=== PATIENT | male | born 1940 | race Caucasian/White ===

== ENCOUNTER 2018-07-27 14:36 | Inpatient (IN) | payer MEDICARE ==
[~2018-07-27] VITALS: Ht 172.7 cm; Wt 69.9 kg
[~2018-07-27 14:36] MED LIST: ACYC800T PO; AMLO10TA4; ASPI-84; ATEN100T88; HYDR1TAB PO; NF-VAL40T; NR-TACRO1; PRD20T PO; PREVASTAIN; [UNRECOGNIZED DRUG - OTHER]
[2018-07-27] MEDS ORDERED: NS IV 1000 ML 1,000 ML IV SCH (15:15)
[2018-07-27 15:26] LABS: BASOPHILS % (AUTO) 0 % (0-10); EOSINOPHILS # (AUTO) 0.1 10^3/uL (0.0-0.3); EOSINOPHILS % (AUTO) 1 % (0-10); HEMATOCRIT 31 % (40-54); HEMOGLOBIN 10.1 G/DL (13.3-17.7); LYMPHOCYTES # (AUTO) 0.4 X 10^3 (1.0-4.0); LYMPHOCYTES % (AUTO) 4 % (12-44); MEAN CORPUSCULAR HEMOGLOBIN 31 PG (25-34); MEAN CORPUSCULAR HGB CONC 32 G/DL (32-36); MEAN CORPUSCULAR VOLUME 94 FL (80-99); MEAN PLATELET VOLUME 10.3 FL (7.4-10.4); MONOCYTES # (AUTO) 0.6 X 10^3 (0.0-1.0); MONOCYTES % (AUTO) 5 % (0-12); NEUTROPHILS # (AUTO) 9.9 X 10^3 (1.8-7.8); NEUTROPHILS % (AUTO) 90 % (42-75); PLATELET COUNT 464 10^3/uL (130-400); RED CELL DISTRIBUTION WIDTH 15.7 % (10.0-14.5)
--- NOTE | 2018-07-27 15:29 | ED Abdominal Pain ---
General Chief Complaint: Abdominal/GI Problems Stated Complaint: ABD PAIN;DIARRHEA;HEADACHES Nursing Triage Note: PATIENT STATES THAT HE HAS BEEN HAVING AN UPSET STOMACH FOR 6 WEEKS, DIARRHEA, HEADACHES. HE HAS OTHER GENERAL ACHES AND PAINS ALSO. HIS EX- WAS RECENTLY DIAGNOSED WITH C.DIFF. Sepsis Screen: No Definite Risk Source of Information: Patient Exam Limitations: No Limitations History of Present Illness Date Seen by Provider: Jul 27, 2018 Time Seen by Provider: 15:26 Initial Comments This 70-year-old white male presents with a 6 week history of poorly localized abdominal pain, diarrhea, headaches and general malaise. The patient is status post AAA repair and renal transplant. The patient has had no associated vomiting, fever or chills, dysuria or flank pain, stiff neck or photophobia. Patient's has had C. difficile recently. Patient denies any antibiotic usage in the last 6 months. Allergies and Home Medications Allergies Coded Allergies: Iodine (Verified Allergy, Unknown, 01/10/06) Povidone-Iodine (Verified Allergy, Unknown, 01/10/06) Soap (Verified Allergy, Unknown, 01/10/06) Home Medications Acyclovir 800 Mg Tablet, 800 MG PO 5XD Prescribed by: RONNI GUSTAFSON on 02/19/09 1308 Hydrocodone Bit/Acetaminophen 1 Each Tablet, 1-2 EACH PO Q4HR PRN Prescribed by: RONNI GUSTAFSON on 02/19/09 130 Prednisone 20 Mg Tab, 3 TAB PO HS 60 mg PO daily for 4 days then 40 mg PO daily for 4 days then 20 mg PO daily for 4 days Prescribed by: RONNI GUSTAFSON on 02/19/09 1308 Patient Home Medication List Home Medication List Reviewed: Yes Review of Systems Review of Systems Constitutional: No chills, No fever; malaise EENTM: No Blurred Vision, No Ear Pain Respiratory: Denies Cough Cardiovascular: Denies Chest Pain Gastrointestinal: Denies Abdomen Distended; Abdominal Pain (poorly localized and intermittent. Moderate in severity.), Diarrhea Genitourinary: No Symptoms Reported Musculoskeletal: no symptoms reported; No back pain Skin: No rash Psychiatric/Neurological: No Symptoms Reported Endocrine: No Symptoms Reported Hematologic/Lymphatic: No Symptoms Reported Past Witnday-Rcgrpn-Gjwyuk Hx Past Med/Social Hx: Reviewed Nursing Past Med/Soc Hx Patient Social History Alcohol Use: Occasionally Uses Alcohol Beverage of Choice: Beer Recreational Drug Use: No Smoking Status: Former Smoker 2nd Hand Smoke Exposure: No Recent Foreign Travel: No Contact w/Someone Who Travel: No Recent Infectious Disease Expo: No Recent Hopitalizations: No Seasonal Allergies Seasonal Allergies: No Past Medical History Surgeries: Yes (KIDNEY TRANSPLANT, AAA REPAIR, FISTULA PLACEMENT, ) Respiratory: No Aneurysm, Hypertension Neurological: No Genitourinary: No Gastrointestinal: No Musculoskeletal: No Endocrine: Yes Diabetes, Non-Insulin dep HEENT: No Cancer: No Psychosocial: No Integumentary: No Physical Exam Vital Signs Vital Signs - First Documented 07/27/18 14:41 Temp 98.3 Pulse 102 Resp 18 B/P (MAP) 141/67 (91) Pulse Ox 96 Capillary Refill : Less Than 3 Seconds Height/Weight/BMI Height: 5'8.00" Weight: 160lbs. 0oz. 72.907509cy; BMI Method:Stated General Appearance: WD/WN, no apparent distress HEENT: normal ENT inspection Neck: normal inspection Respiratory: chest non-tender, lungs clear, normal breath sounds Cardiovascular: normal peripheral pulses, regular rate, rhythm Gastrointestinal: normal bowel sounds, no organomegaly, no pulsatile mass, tenderness (mild diffuse tenderness to palpation) Extremities: normal range of motion, normal inspection Back: normal inspection Neurologic/Psychiatric: no motor/sensory deficits, alert, normal mood/affect Skin: normal color, warm/dry; No rash Progress/Results/Core Measures Results/Orders Lab Results Laboratory Tests Test 07/27/18 15:05 07/27/18 15:20 Range/Units White Blood Count 11.0 4.3-11.0 10^3/uL Red Blood Count 3.31 L 4.35-5.85 10^6/uL Hemoglobin 10.1 L 13.3-17.7 G/DL Hematocrit 31 L 40-54 % Mean Corpuscular Volume 94 80-99 FL Mean Corpuscular Hemoglobin 31 25-34 PG Mean Corpuscular Hemoglobin Concent 32 32-36 G/DL Red Cell Distribution Width 15.7 H 10.0-14.5 % Platelet Count 464 H 130-400 10^3/uL Mean Platelet Volume 10.3 7.4-10.4 FL Neutrophils (%) (Auto) 90 H 42-75 % Lymphocytes (%) (Auto) 4 L 12-44 % Monocytes (%) (Auto) 5 0-12 % Eosinophils (%) (Auto) 1 0-10 % Basophils (%) (Auto) 0 0-10 % Neutrophils # (Auto) 9.9 H 1.8-7.8 X 10^3 Lymphocytes # (Auto) 0.4 L 1.0-4.0 X 10^3 Monocytes # (Auto) 0.6 0.0-1.0 X 10^3 Eosinophils # (Auto) 0.1 0.0-0.3 10^3/uL Basophils # (Auto) 0.0 0.0-0.1 10^3/uL Neutrophils % (Manual) 91 % Lymphocytes % (Manual) 3 % Monocytes % (Manual) 4 % Eosinophils % (Manual) 2 % Polychromasia SLIGHT Hypochromasia SLIGHT Basophilic Stippling SLIGHT Stomatocytes SLIGHT Sodium Level 130 L 135-145 MMOL/L Potassium Level 4.7 3.6-5.0 MMOL/L Chloride Level 98 98-107 MMOL/L Carbon Dioxide Level 24 21-32 MMOL/L Anion Gap 8 5-14 MMOL/L Blood Urea Nitrogen 19 H 7-18 MG/DL Creatinine 1.08 0.60-1.30 MG/DL Estimat Glomerular Filtration Rate > 60 BUN/Creatinine Ratio 18 Glucose Level 201 H 70-105 MG/DL Calcium Level 9.7 8.5-10.1 MG/DL Corrected Calcium 10.7 H 8.5-10.1 MG/DL Total Bilirubin 0.6 0.1-1.0 MG/DL Aspartate Amino Transf (AST/SGOT) 22 5-34 U/L Alanine Aminotransferase (ALT/SGPT) 23 0-55 U/L Alkaline Phosphatase 191 H 40-136 U/L Total Protein 8.9 H 6.4-8.2 GM/DL Albumin 2.7 L 3.2-4.5 GM/DL Lipase 31 8-78 U/L Urine Color YELLOW Urine Clarity SLIGHTLY CLOUDY Urine pH 6 5-9 Urine Specific [place] 1.015 L 1.016-1.022 Urine Protein 4+ NEGATIVE Urine Glucose (UA) NEGATIVE NEGATIVE Urine Ketones NEGATIVE NEGATIVE Urine Nitrite POSITIVE H NEGATIVE Urine Bilirubin NEGATIVE NEGATIVE Urine Urobilinogen 1 NORMAL MG/DL Urine Leukocyte Esterase 3+ H NEGATIVE Urine RBC (Auto) 4+ H NEGATIVE Urine RBC 2-5 H /HPF Urine WBC 50-100 H /HPF Urine Crystals NONE /LPF Urine Bacteria MODERATE H /HPF Urine Casts NONE /LPF Urine Mucus NEGATIVE /LPF Urine Culture Indicated YES My Orders Orders - NICOLE TRACY MD Cbc With Automated Diff (07/27/18 15:14) Comprehensive Metabolic Panel (07/27/18 15:14) Lipase (07/27/18 15:14) Ua Culture If Indicated (07/27/18 15:14) Stool Culture (07/27/18 15:14) Ct Abdomen/Pelvis Wo (07/27/18 15:14) Ns Iv 1000 Ml (Sodium Chloride 0.9%) (07/27/18 15:15) Manual Differential (07/27/18 15:05) Urine Culture (07/27/18 15:20) Ceftriaxone For Iv Use (Rocephin For I (07/27/18 17:00) Medications Given in ED Current Medications Medications Dose Ordered Sig/Rosanne Route Start Time Stop Time Status Last Admin Dose Admin Ceftriaxone Sodium 1000 mg/ Sterile Water 10 ml @ 200 mls/hr ONCE ONCE IV 07/27/18 17:00 07/27/18 17:02 DC 07/27/18 17:05 200 MLS/HR Vital Signs/I&O 07/27/18 14:41 Temp 98.3 Pulse 102 Resp 18 B/P (MAP) 141/67 (91) Pulse Ox 96 Blood Pressure Mean: 91 Progress Progress Note : Time: 17:32 Progress Note Patient's workup demonstrated a marked urinary tract infection. There were also appear masses in the a.m. lower lobes on chest x-ray. Patient received a gram of Rocephin IV for his urinary tract infection. Telephone consultation was undertaken with Dr. Kerr who was kind enough to admit patient for further evaluation and care. I ordered a CT of the chest for further elucidation of the lower lobe masses in the morning. Departure Communication (Admissions) Time/Spoke to Admitting Phy: 17:33 Dr. Kerr. Impression Primary Impression: Urinary tract infection Qualified Codes: N30.00 - Acute cystitis without hematuria Additional Impression: Mass, chest Disposition: ADMITTED INPATIENT Condition: Improved Admissions Decision to Admit Reason: Admit from ER (General) Decision to Admit/Date: Jul 27, 2018 Time/Decision to Admit Time: 17:34 Departure-Patient Inst. Referrals: NO,LOCAL PHYSICIAN (PCP/Family) Primary Care Physician NICOLE TRACY MD Jul 27, 2018 15:29
[2018-07-27 15:30] LABS: BILIRUBIN,URINE NEGATIVE (NEGATIVE); CLARITY,URINE SLIGHTLY CLOUDY; COLOR,URINE YELLOW; GLUCOSE, URINE (UA) NEGATIVE (NEGATIVE); KETONES,URINE NEGATIVE (NEGATIVE); LEUKOCYTE ESTERASE ,URINE 3+ (NEGATIVE); NITRITE,URINE POSITIVE (NEGATIVE); PH,URINE 6 (5-9); PROTEIN,URINE 4+ (NEGATIVE); UROBILINOGEN,URINE 1 MG/DL (NORMAL)
[2018-07-27 15:38] LABS: ALANINE AMINOTRANSFERASE 23 U/L (0-55); ALBUMIN 2.7 GM/DL (3.2-4.5); ALKALINE PHOSPHATASE 191 U/L (40-136); BILIRUBIN,TOTAL 0.6 MG/DL (0.1-1.0); BUN/CREATININE RATIO 18; CALCIUM 9.7 MG/DL (8.5-10.1); CARBON DIOXIDE 24 MMOL/L (21-32); CHLORIDE 98 MMOL/L (98-107); CREATININE SERUM 1.08 MG/DL (0.60-1.30); GFR ESTIMATED > 60; GLUCOSE 201 MG/DL (70-105); LIPASE 31 U/L (8-78); POTASSIUM 4.7 MMOL/L (3.6-5.0); SODIUM 130 MMOL/L (135-145); TOTAL PROTEIN 8.9 GM/DL (6.4-8.2)
[2018-07-27 15:40] LABS: BACTERIA,URINE MODERATE /HPF; WBC,URINE 50-100 /HPF
[2018-07-27 16:11] LABS: EOSINOPHILS % (MANUAL) 2 %; HYPOCHROMASIA SLIGHT; LYMPHOCYTES % (MANUAL) 3 %; MONOCYTES % (MANUAL) 4 %; NEUTROPHILS % (MANUAL) 91 %; POLYCHROMASIA SLIGHT; STOMATOCYTES SLIGHT
--- NOTE | 2018-07-27 16:23 | Diagnostic Imaging Report ---
PROCEDURE: CT abdomen and pelvis without contrast. TECHNIQUE: Multiple contiguous axial images were obtained through the abdomen and pelvis without the use of intravenous contrast. Auto Exposure Controls were utilized during the CT exam to meet ALARA standards for radiation dose reduction. INDICATION: Abdominal pain and diarrhea. FINDINGS: There are some nodular-appearing bibasilar infiltrates. This is likely atypical infection although neoplasm cannot be excluded. Heart size is upper limits of normal. Liver is normal in size. There is a benign cyst in the left lobe of the liver. There is no biliary ductal dilatation. Gallbladder is unremarkable. Spleen is normal. The pancreas and adrenal glands are unremarkable. There is marked atrophy of both kidneys. There is a 3.8 cm infrarenal abdominal aortic aneurysm which appears to be fusiform. There is moderate atherosclerotic calcification. The bowel gas pattern is nonspecific. There is a right renal fossa transplant kidney. Bladder is normal. There is no pelvic mass or adenopathy. There is no ascites. There are no focal inflammatory changes. There are degenerative changes in the spine. IMPRESSION: Nodular-appearing bibasilar interstitial infiltrates suspect for atypical infection although neoplasm cannot be excluded. Recommend dedicated CT chest as well as short-interval follow-up to ensure resolution. Marked bilateral renal atrophy with right pelvic renal transplant. 3.8 cm abdominal aortic aneurysm. No other acute abnormality in the abdomen or pelvis. Degenerative changes in the spine. Dictated by: Dictated on workstation # [id number]
[2018-07-27] MEDS ORDERED: cefTRIAXone FOR IV USE 1,000 MG in WATER (STERILE) FOR INJECTION 10 ML IV ONE (17:00)
[2018-07-27 18:18] VITALS: BP 163/98
--- NOTE | 2018-07-27 18:18 | NUR ---
STEPHANIA BUSTILLOS JR admitted to room 414-1, with an admitting diagnosis of UTI AND PULMONARY MASSESS, on 07/27/18 from ED via , accompanied by STAFF. STEPHANIA BUSTILLOS JR introduced to surroundings, call light, bed controls, phone, TV, temperature control, lights, meal times, smoking policy, visitor policy, side rail policy, bathrooms and showers. STEPHAINA BUSTILLOS JR verbalizes understanding that [facility] is not responsible for the loss or damage to any personal effects or valuables that are kept in the patients posession during their hospitalization. The following Patient Care Plans were discussed with the PT: Discharge Planning, PAIN, AND UTI. STEPHANIA BUSTILLOS JR verbalizes understanding of Interdisciplinary Patient Education. Patient and/or family were informed about the Rapid Response Team and its purpose.
[2018-07-27 18:25] VITALS: BP 170/98
[2018-07-27] MEDS ORDERED: CATHETER FLUSH 10 ML SYR IV PRN (18:30)
--- NOTE | 2018-07-27 18:45 | NUR ---
CT CHEST W/ CONTRAST ORDERED FOR AM. DR. ROWLAND NOTIFIED OF ALLERGY TO IODINE. AWAITING ORDERS.
--- NOTE | 2018-07-27 18:46 | NUR ---
DR. ROWLAND CALLED AND CT CANCELLED UNTIL RADIOLOGY HERE IN AM FOR HER TO DISCUSS PLAN WITH.
[2018-07-27 20:00] VITALS: BP 123/71
[2018-07-28] VITALS (8 sets, daily range): BP systolic 131–173; BP diastolic 61–96
[2018-07-28 04:34] LABS: BASOPHILS % (AUTO) 0 % (0-10); EOSINOPHILS # (AUTO) 0.1 10^3/uL (0.0-0.3); EOSINOPHILS % (AUTO) 2 % (0-10); HEMATOCRIT 29 % (40-54); HEMOGLOBIN 9.6 G/DL (13.3-17.7); LYMPHOCYTES # (AUTO) 0.4 X 10^3 (1.0-4.0); LYMPHOCYTES % (AUTO) 5 % (12-44); MEAN CORPUSCULAR HEMOGLOBIN 31 PG (25-34); MEAN CORPUSCULAR HGB CONC 33 G/DL (32-36); MEAN CORPUSCULAR VOLUME 95 FL (80-99); MEAN PLATELET VOLUME 10.4 FL (7.4-10.4); MONOCYTES # (AUTO) 0.5 X 10^3 (0.0-1.0); MONOCYTES % (AUTO) 6 % (0-12); NEUTROPHILS # (AUTO) 7.5 X 10^3 (1.8-7.8); NEUTROPHILS % (AUTO) 87 % (42-75); PLATELET COUNT 368 10^3/uL (130-400); RED CELL DISTRIBUTION WIDTH 15.8 % (10.0-14.5); WHITE BLOOD COUNT 8.6 10^3/uL (4.3-11.0)
[2018-07-28 04:54] LABS: ALANINE AMINOTRANSFERASE 30 U/L (0-55); ALBUMIN 2.3 GM/DL (3.2-4.5); ALKALINE PHOSPHATASE 203 U/L (40-136); BILIRUBIN,TOTAL 0.5 MG/DL (0.1-1.0); BUN/CREATININE RATIO 18; CARBON DIOXIDE 17 MMOL/L (21-32); CHLORIDE 102 MMOL/L (98-107); CREATININE SERUM 0.93 MG/DL (0.60-1.30); GFR ESTIMATED > 60; GLUCOSE 217 MG/DL (70-105); POTASSIUM 4.5 MMOL/L (3.6-5.0); SODIUM 132 MMOL/L (135-145); TOTAL PROTEIN 7.6 GM/DL (6.4-8.2)
[2018-07-28] MEDS: NS IV 1000 ML 1,000 ML IV SCH ×2 (08:44→08:45)
--- NOTE | 2018-07-28 08:57 | History & Physical-Hospitalist ---
History of Present Illness HPI/Chief Complaint CC: Abdominal pain HPI: This is a 78-year-old white male of Dr. Chwo who has a past medical history of AAA repair and renal transplant on immunosuppressive antirejection medications and presented to the ER with abdominal pain concerned that he has C. difficile like his ex- who they live together had. There was no evidence of any diarrhea episodes but the abdominal pain was worked up with CT scan that showed nodular densities in the lower bases of the lung chacko but no significant abdominal abnormalities. I did order an ultrasound due to what appears to be ascites on abdominal exam. He was placed on Rocephin for UTI and labs have remained stable. Patient appears to be much improved and is able to function without severe abdominal pain. Source: patient Exam Limitations: no limitations Date Seen 07/28/18 Time Seen by a Provider: 09:15 Attending Physician Laurel Rowland DO PCP No,Local Physician Referring Physician Date of Admission Jul 27, 2018 at 16:45 Home Medications & Allergies Home Medications Reviewed patient Home Medication Reconciliation performed by pharmacy medication reconciliations roadway technician and/or nursing. Patients Allergies have been reviewed. Allergies Allergies Coded Allergies iodine (Verified Allergy, Unknown, 07/27/18) povidone-iodine (Verified Allergy, Unknown, 07/27/18) soap (Verified Allergy, Unknown, 07/27/18) Past Dnrkmsa-Zjjzbh-Bolgqo Hx Past Med/Social Hx: Reviewed Nursing Past Med/Soc Hx, Reviewed and Corrections made Patient Social History Marrital Status: Employed/Student: retired Alcohol Use: Occasionally Uses Alcohol Beverage of Choice: Beer Recreational Drug Use: No Smoking Status: Former Smoker 2nd Hand Smoke Exposure: No Physical Abuse Screen: No Sexual Abuse: No Recent Foreign Travel: No Contact w/other who traveled: No Recent Hopitalizations: No Recent Infectious Disease Expo: No Immunizations Up To Date Date of Pneumonia Vaccine: Jan 16, 2011 Seasonal Allergies Seasonal Allergies: No Past Medical History Cardiac: Aneurysm, Hypertension Genitourinary: Dialysis Endocrine: Diabetes, Non-Insulin dep History of Blood Disorders: No Adverse Reaction to Blood Kyle: No Review of Systems Constitutional: see HPI, weakness EENTM: no symptoms reported Respiratory: no symptoms reported Cardiovascular: no symptoms reported Gastrointestinal: abdominal pain Genitourinary: no symptoms reported Musculoskeletal: no symptoms reported Skin: no symptoms reported Psychiatric/Neurological: No Symptoms Reported All Other Systems Reviewed Negative Unless Noted: Yes Physical Exam Physical Exam Vital Signs Vital Signs - First Documented 07/27/18 07/27/18 14:41 18:11 Temp 98.3 Pulse 102 Resp 18 B/P (MAP) 141/67 (91) Pulse Ox 96 O2 Delivery Room Air Capillary Refill : Less Than 3 Seconds Height, Weight, BMI Height: 5'8.00" Weight: 154lbs. 0.0oz. 69.036726zp; 23.4 BMI Method:Stated General Appearance: No Apparent Distress, WD/WN, Chronically ill Eyes: Right Eye Normal Inspection, Right Eye PERRL HEENT: PERRL/EOMI, Normal ENT Inspection, Pharynx Normal, Moist Mucous Membranes Neck: Full Range of Motion, Normal Inspection, Non Tender Respiratory: Chest Non Tender, Lungs Clear, Normal Breath Sounds, No Accessory Muscle Use, No Respiratory Distress Cardiovascular: Regular Rate, Rhythm, No Edema, No Gallop, No JVD, No Murmur, Normal Peripheral Pulses Gastrointestinal: Normal Bowel Sounds, No Organomegaly, No Pulsatile Mass, Non Tender, Soft, Other (ascites?) Back: Normal Inspection, No CVA Tenderness, No Vertebral Tenderness Extremity: Normal Capillary Refill, Normal Inspection, Normal Range of Motion, Non Tender, No Calf Tenderness, No Pedal Edema Neurologic/Psychiatric: Alert, Oriented x3, No Motor/Sensory Deficits, Normal Mood/Affect Skin: Normal Color, Warm/Dry Lymphatic: No Adenopathy Results Results/Procedures Labs Laboratory Tests 07/27/18 15:05 07/28/18 04:15 Patient resulted labs reviewed. Assessment/Plan Admission Diagnosis Assessment: UTI Renal transplant patient On immunosuppressive antirejection meds Presumed ascites ordering ultrasound Chronic debility AAA status post repair Nodular densities on abdominal CT but allergic to IV contrast can't undergo CT chest at this time Plan: Rocephin Await urine culture Ambulate Check ultrasound Probiotic PT/OT HLIVF Admission Status: Inpatient Order (span 2 midnights) Reason for Inpatient Admission: UTI with antirejection immunsuppressives Diagnosis/Problems Diagnosis/Problems (1) UTI (urinary tract infection) Status: Acute Qualifiers: Urinary tract infection type: acute cystitis Hematuria presence: without hematuria Qualified Codes: N30.00 - Acute cystitis without hematuria (2) Renal transplant, status post Status: Chronic (3) Immunosuppressed status Status: Chronic (4) POSS PULMONARY MASS Status: Acute Clinical Quality Measures DVT/VTE Risk/Contraindication: Risk Factor Score Per Nursin RFS Level Per Nursing on Admit: 3=High LAUREL ROWLAND DO Jul 28, 2018 08:57
[2018-07-28] MEDS ORDERED: TACR1CAP8 PO (09:40)
[2018-07-28] MEDS ORDERED: METF-399 PO (09:40)
[2018-07-28] MEDS ORDERED: AZAT50TA PO (09:40)
[2018-07-28] MEDS ORDERED: GLIM2TAB PO (10:19)
[2018-07-28] MEDS ORDERED: AMLO10TA7 PO (10:19)
[2018-07-28] MEDS ORDERED: OMG1KC PO (10:19)
[2018-07-28] MEDS ORDERED: ASPI-983 PO (10:19)
[2018-07-28] MEDS ORDERED: AMLO5TAB9 PO (10:39)
--- NOTE | 2018-07-28 10:41 | NUR ---
SPOKE WITH THE PATIENT ABOUT HIS MEDICATIONS. HE LISTED TO ME WHAT HE IS TAKING TO THE BEST OF HIS ABILITY. JEANLilaTALIA FLORES FILLED: 07-07-18 TACROLIMUS 1MG BID 07-07-18 AZATHIOPRINE 50MG 2 DAILY (TAKES AT HS) 05-09-18 GLIMEPIRIDE 2MG BID #60 (STATES HE IS OUT AND HAS AN APPOINTMENT WITH DR. BROOKE IN SEPTEMBER TO GET REFILLS, I ENCOURAGED HIM TO SEE IF THEY WOULD AUTHORIZE ENOUGH REFILLS TO GET HIM THROUGH TO HIS APPOINTMENT) ABISAI MAIL ORDER FILLED: 05-31-18 METFORMIN 1000MG BID #180 08-24-17 AMLODIPINE 5MG DAILY #90 (REPORTED 10MG DAILY AND STATES HE HAS NOT FILLED IT IN AWHILE BECAUSE HE HAD A SUPPLY BUILT UP ON HAND AT HOME. ABISAI HAS NEVER FILLED 10MG AND THE 5MG IS SIGNIFICANTLY PAST DUE) HE REPORTS HE TAKES THE FOLLOWING OTC: FISH OIL DAILY ASPIRIN 81MG DAILY
[2018-07-28] MEDS ORDERED: ACETAMINOPHEN 500 MG TAB (TYLENOL) PO PRN (12:30)
[2018-07-28] MEDS ORDERED: DOCUSATE SODIUM 100 MG (COLACE) CAP PO PRN (12:30)
[2018-07-28] MEDS ORDERED: ONDANSETRON 4 MG/2 ML (SDV) Z0FRAN IVP PRN (12:30)
[2018-07-28] MEDS ORDERED: MELATONIN 3 MG TABLET PO PRN (12:30)
[2018-07-28] MEDS ORDERED: diphenhydrAMINE 25 MG TAB (BENADRYL) PO PRN (12:30)
[2018-07-28] MEDS ORDERED: LOPERAMIDE 2 MG (IMODIUM) CAP PO PRN (12:30)
[2018-07-28] MEDS ORDERED: ALPRAZolam 0.25 MG (XANAX) TAB PO PRN (12:30)
--- NOTE | 2018-07-28 14:30 | Physical Therapy Evaluation ---
PT Evaluation-General Medical Diagnosis Admission Date Jul 27, 2018 at 16:45 Medical Diagnosis: weakness Onset Date: Jul 27, 2018 Therapy Diagnosis Therapy Diagnosis: impaired mobility, endurance, balanace Height/Weight Height (Feet): 5 Height (Inches): 8.00 Weight (Pounds): 154 Weight (Ounces): 0.0 Precautions Precautions/Isolations: Standard Precautions Referral Physician: Laurel Kerr DO Reason for Referral: Evaluation/Treatment Medical History Pertinent Medical History: DM, HTN Additional Medical History renal transplant, AAA, aneurysm Current History Patient went to ER with abdominal pain, CT scan showed nodular densities in the lower bases of the lung chacko. Reviewed History: Yes Social History Home: Single Level Current Living Status: Alone Entry Into Home: Stairs With Railing Prior/Core FIM Prior Level of Function Therapy Code Descriptions/Definitions Functional [place] Measure: 0=Not Assessed/NA 4=Minimal Assistance 1=Total Assistance 5=Supervision or Setup 2=Maximal Assistance 6=Modified [place] 3=Moderate Assistance 7=Complete [place] Therapy Quality Codes: 6 Independent with activity with or without an assistive device 5 Patient requires set up or clean up by helper. Patient completes activity by themselves 4 Supervision or touching assist (CGA). Benld provide cues , steadying assist 3 The helper provides less than half the effort to complete the activity 2 The helper provides more than half the effort to complete the activity 1 Dependent. The helper does all the effort to complete an activity 7 Patient refused to complete or attempt activity 9 The patient did not perform the activity before the current illness or injury 88 Not attempted due to Medical conditions or safety concerns Functional Abilities and Goals: Independent: Patient completed the activities by him/herself, with or without an assistive device, with no assistance from a helper. Needed Some Help: Patient needed partial assistance from another person to complete activities. Dependent: A helper completed the activities for the patient. Unknown: Not Applicable: Bed Mobility: 7 Transfers (B,C,W/C) (FIM): 7 Gait: 7 Stairs: 6 Indoor Mobility (Ambulation): Independent Stairs: Independent PT Evaluation-Current Subjective Patient in bed pre tx, agrees to PT, has no complaints of pain. Pt/Family Goals to be independent at home Objective Patient Orientation: Person, Place, Situation Attachments: IV Patient seems to be oriented to person, place, situation, but still seems to be slightly confused. ROM/Strength ROM Lower Extremities WNL Strength Lower Extremities right lower extremity (hip flexion 4-/5, knee extension 4+/5, knee flexion 4+/5 , dorsiflexion 5/5), left lower extremity (hip flexion 4-/5, knee extension 4+/5 , knee flexion 4+/5, dorsiflexion 5/5) Neuromuscular (Tone, Coordination, Reflexes) NT Sensory Vision: Wears Glasses Hearing: Functional Sensation Right Lower Extremit: Intact Sensation Left Lower Extremity: Intact Transfers Therapy Code Descriptions/Definitions Functional [place] Measure: 0=Not Assessed/NA 4=Minimal Assistance 1=Total Assistance 5=Supervision or Setup 2=Maximal Assistance 6=Modified [place] 3=Moderate Assistance 7=Complete [place] Transfers (B, C, W/C) (FIM): 5 Scootin Rollin Supine to/from Sit: 5 Sit to/from Stand: 5 Gait Mode of Locomotion: Walk Anticipated Mode of Locomotion: Walk Gait (FIM): 2 Distance: 50' Gait Level of Assist: 4 Gait Persons Needed: 1 Gait Assistive Device: Handheld Assist (push IV pole) Comments/Gait Description Patient ambulated 50' pushing IV pole with CGA. Patient ambulates briskly but with halting, uncoordinated steps, no LOB though. Balance Sitting Static: Normal Sitting Dynamic: Normal Standing Static: Fair Standing Dynamic: Fair Treatment seated LE exercises x15 (AP, LAQ) Assessment/Needs Patient has impaired mobility, balance, endurance. He has slightly uncoordinated steps during ambulation and seems possible a little confused. Rehab Potential: Fair PT Short Term Goals Short Term Goals Time Frame: Aug 04, 2018 Transfers (B,C,W/C) (FIM): 6 Gait (FIM): 5 Gait Distance Comment: 150' Gait Level of Assist: 5 Gait Assistive Device: Handheld Assist (push IV pole) PT Plan Problem List Problem List: Activity Tolerance, Functional Strength, Safety, Balance, Gait, Transfer Treatment/Plan Treatment Plan: Continue Plan of Care Treatment Plan: Bed Mobility, Education, Functional Activity Carolyne, Functional Strength, Gait, Safety, Therapeutic Exercise, Transfers Treatment Duration: Aug 04, 2018 Frequency: 6 times per week Estimated Hrs Per Day: .25 hour per day (15-30') Patient and/or Family Agrees t: Yes Safety Risks/Education Patient Education: Gait Training, Transfer Techniques, Correct Positioning, Safety Issues Teaching Recipient: Patient Teaching Methods: Demonstration, Discussion Response to Teaching: Reinforcement Needed Discharge Recommendations Plan Patient will perform bed mobility and transfer training, balance and endurance training, functional strengthening, stair training, gait training, and education , to improve functional mobility and independence at home. Therapy D/C Recommendations: Home w/ Family Support Time/GCodes Time In: 1410 Time Out: 1423 Total Billed Treatment Time: 13 Total Billed Treatment 1 visit RAJINDER ARDON PT Jul 28, 2018 14:30
--- NOTE | 2018-07-28 14:40 | NUR ---
Pastoral care visit.
--- NOTE | 2018-07-28 14:51 | Diagnostic Imaging Report ---
PROCEDURE: US abdomen complete. TECHNIQUE: Multiple real-time grayscale images were obtained over the abdomen in various projections. INDICATION: Abdominal pain and distention. COMPARISON: CT abdomen and pelvis from 07/27/2018. FINDINGS: The liver is normal in size and echogenicity. There is no concerning hepatic mass. Well-circumscribed cyst in the left hepatic lobe is stable. The main portal vein is patent with antegrade flow. Gallbladder is contracted with borderline gallbladder wall thickening measuring 0.3 cm. The common bile duct measures up to 0.5 cm in diameter. No intrahepatic biliary dilation. The visualized portions of the pancreas are normal. Portions of the head and tail are obscured by overlying bowel gas. [place] kidneys are atrophic. Right lower quadrant transplant has mild dilation of the renal sinus fat. No shadowing echogenic calculi. The spleen is normal in size and without focal lesion. The aorta and IVC are normal in caliber where seen. The mid and distal aorta is obscured by overlying bowel gas, and therefore the aneurysmal dilatation is not appreciated on this exam. IMPRESSION: 1. Right lower quadrant renal transplant shows minimal dilatation of the renal sinus fat suggestive of mild hydronephrosis. This could be physiologic in nature. 2. Partially contracted gallbladder is likely due to recent eating. No biliary duct dilatation. 3. Simple cyst in the left hepatic lobe. Dictated by: Dictated on workstation # [id number]
--- NOTE | 2018-07-28 15:19 | Occupational Therapy Eval ---
OT Evaluation-General/PLF Medical Diagnosis Admission Date Jul 27, 2018 at 16:45 Medical Diagnosis: weakness Onset Date: Jul 27, 2018 Therapy Diagnosis Therapy Diagnosis: impaired ADLS and mobility Height/Weight Height (Feet): 5 Height (Inches): 8.00 Weight (Pounds): 154 Weight (Ounces): 0.0 Precautions Precautions/Isolations: Standard Precautions Safety Interventions: None Referral Physician: Laurel Kerr DO Referral Reason: Activity Tolerance, Self Care, Evaluation/Treatment, Strengthening/ROM Medical History Pertinent Medical History: DM, HTN Current History HPI: This is a 78-year-old white male of Dr. Chow who has a past medical history of AAA repair and renal transplant on immunosuppressive antirejection medications and presented to the ER with abdominal pain concerned that he has C. difficile like his ex- who they live together had. There was no evidence of any diarrhea episodes but the abdominal pain was worked up with CT scan that showed nodular densities in the lower bases of the lung chacko but no significant abdominal abnormalities. I did order an ultrasound due to what appears to be ascites on abdominal exam. He was placed on Rocephin for UTI and labs have remained stable. Patient appears to be much improved and is able to function without severe abdominal pain. Reviewed History: Yes Social History Home: Single Level Current Living Status: Alone Entry Into Home: Stairs With Railing tub/ shower combo ADL-Prior Level of Function Therapy Code Descriptions/Definitions Functional [place] Measure: 0=Not Assessed/NA 4=Minimal Assistance 1=Total Assistance 5=Supervision or Setup 2=Maximal Assistance 6=Modified [place] 3=Moderate Assistance 7=Complete [place] Therapy Quality Codes: 6 Independent with activity with or without an assistive device 5 Patient requires set up or clean up by helper. Patient completes activity by themselves 4 Supervision or touching assist (CGA). [place] provide cues , steadying assist 3 The helper provides less than half the effort to complete the activity 2 The helper provides more than half the effort to complete the activity 1 Dependent. The helper does all the effort to complete an activity 7 Patient refused to complete or attempt activity 9 The patient did not perform the activity before the current illness or injury 88 Not attempted due to Medical conditions or safety concerns Functional Abilities and Goals: Independent: Patient completed the activities by him/herself, with or without an assistive device, with no assistance from a helper. Needed Some Help: Patient needed partial assistance from another person to complete activities. Dependent: A helper completed the activities for the patient. Unknown: Not Applicable: Self Care: Independent Functional Cognition: Independent Drive Self: Yes OT Current Status Subjective pt agreed to OT evaluation session. pt c/o of no pain. Mental Status/Objective Patient Orientation: Person, Place, Time, Situation Attachments: IV Current Glasses/Contacts: Yes Hearing Aids: No Dentures/Partials: Yes Hand Dominance: Right Upper Extremity ROM WFL Upper Extremity Coordination WFL Upper Extremity Sensation WFL Upper Extremity Strength WFL ADL-Treatment Therapy Code Descriptions/Definitions Functional [place] Measure: 0=Not Assessed/NA 4=Minimal Assistance 1=Total Assistance 5=Supervision or Setup 2=Maximal Assistance 6=Modified [place] 3=Moderate Assistance 7=Complete [place] Therapy Quality Codes: 6 Independent with activity with or without an assistive device 5 Patient requires set up or clean up by helper. Patient completes activity by themselves 4 Supervision or touching assist (CGA). [place] provide cues , steadying assist 3 The helper provides less than half the effort to complete the activity 2 The helper provides more than half the effort to complete the activity 1 Dependent. The helper does all the effort to complete an activity 7 Patient refused to complete or attempt activity 9 The patient did not perform the activity before the current illness or injury 88 Not attempted due to Medical conditions or safety concerns Grooming (FIM): 4 (CGA fro safety/ balance using no AD) Lower Body Dressing (FIM): 5 (sitting EOB) Toileting (FIM): 4 (CGA fro safety/ balance using no AD) Transfers (B, C, W/C) (FIM): 4 (CGA fro safety/ balance using no AD) Education OT Patient Education: Purpose of tx/functional activities Teaching Recipient: Patient Teaching Methods: Discussion Response to Teaching: Verbalize Understanding OT Short Term Goals Short Term Goals Grooming(FIM): 5 Bathing(FIM): 5 Toileting(FIM): 5 Transfers (B,C,W/C) (FIM): 6 Toilet/Commode Transfer(FIM): 5 1=Demonstrate adherence to instructed precautions during ADL tasks. 2=Patient will verbalize/demonstrate understanding of assistive devices/ modifications for ADL. 3=Patient will improve strength/tolerance for activity to enable patient to perform ADL's. OT Making Machine Operator Goals Shelter Goals Grooming(FIM): 6 Bathing(FIM): 6 Lower Body Dressing(FIM): 6 Toileting(FIM): 6 Toilet/Commode Transfer(FIM): 6 1=Demonstrate adherence to instructed precautions during ADL tasks. 2=Patient will verbalize/demonstrate understanding of assistive devices/ modifications for ADL. 3=Patient will improve strength/tolerance for activity to enable patient to perform ADL's. OT Education/Plan Problem List/Assessment Assessment: Decreased Activ Tolerance, Impaired Funct Balance, Impaired I ADL's , Impaired Self-Care Skills 78 year old male pt present to OT service with dx of "weakness" pt laying in bed upon OT arrival in no appearnt distress. pt agreed to OT evaluation session. pt presents with functional limitations affecting areas of ADLS and functional transfers with deficits in: decrease dyn standing balance, decrease activity tolerance. pt would benefit from OT services to increase independence with ADLs/ functional transfers and to address above mention deficits. anticipated d.c home Discharge Recommendations Plan/Recommendations: Continue POC Therapy D/C Recommendations: Home Independently Treatment Plan/Plan of Care Treatment,Training & Education: Yes Patient would benefit from OT for education, treatment and training to promote independence in ADL's, mobility, safety and/or upper extremity function for ADL' s. Plan of Care: ADL Retraining, Caregiver Training, Functional Mobility, UE Funct Exercise/Act Treatment Duration: Aug 04, 2018 Frequency: 5 times per week Estimated Hrs Per Day: .5 hour per day Agreement: Yes Rehab Potential: Fair Time/GCodes Start Time: 15:00 Stop Time: 15:15 Billed Treatment Time EVM 15 minutes GIFTY HOOVER OT Jul 28, 2018 15:19
[2018-07-28] MEDS: LACTOBACILLUS ACIDOPHILUS (PROBIOTIC) CAPSULE PO SCH (17:36)
[2018-07-28] MEDS: GLIMEPIRIDE 2 MG (AMARYL) TAB PO SCH (17:36)
[2018-07-28] MEDS: cefTRIAXone 1,000 MG/SWFI 10 ML IV PUSH IV SCH ×2 (17:37)
[2018-07-28 17:48] LABS: BILIRUBIN,URINE NEGATIVE (NEGATIVE); CLARITY,URINE CLEAR; COLOR,URINE YELLOW; GLUCOSE, URINE (UA) 1+ (NEGATIVE); KETONES,URINE NEGATIVE (NEGATIVE); LEUKOCYTE ESTERASE ,URINE 1+ (NEGATIVE); NITRITE,URINE NEGATIVE (NEGATIVE); PH,URINE 5 (5-9); PROTEIN,URINE 3+ (NEGATIVE); UROBILINOGEN,URINE NORMAL (NORMAL)
[2018-07-28 17:55] LABS: BACTERIA,URINE TRACE /HPF; RBC,URINE 0-2 /HPF; WBC,URINE 25-50 /HPF
[2018-07-29 04:15] VITALS: BP 140/75
[2018-07-29 06:12] LABS: BASOPHILS % (AUTO) 0 % (0-10); EOSINOPHILS # (AUTO) 0.2 10^3/uL (0.0-0.3); EOSINOPHILS % (AUTO) 3 % (0-10); HEMATOCRIT 30 % (40-54); HEMOGLOBIN 9.5 G/DL (13.3-17.7); LYMPHOCYTES # (AUTO) 0.4 X 10^3 (1.0-4.0); LYMPHOCYTES % (AUTO) 6 % (12-44); MEAN CORPUSCULAR HEMOGLOBIN 31 PG (25-34); MEAN CORPUSCULAR HGB CONC 32 G/DL (32-36); MEAN CORPUSCULAR VOLUME 96 FL (80-99); MEAN PLATELET VOLUME 10.3 FL (7.4-10.4); MONOCYTES # (AUTO) 0.5 X 10^3 (0.0-1.0); MONOCYTES % (AUTO) 7 % (0-12); NEUTROPHILS # (AUTO) 5.8 X 10^3 (1.8-7.8); NEUTROPHILS % (AUTO) 84 % (42-75); PLATELET COUNT 344 10^3/uL (130-400); RED CELL DISTRIBUTION WIDTH 15.7 % (10.0-14.5); WHITE BLOOD COUNT 6.9 10^3/uL (4.3-11.0)
[2018-07-29] MEDS: OMEGA 3 (FISH OIL) 1000 MG CAP PO SCH (06:17)
[2018-07-29] MEDS: GLIMEPIRIDE 2 MG (AMARYL) TAB PO SCH ×2 (06:17→16:17)
[2018-07-29] MEDS: LACTOBACILLUS ACIDOPHILUS (PROBIOTIC) CAPSULE PO SCH ×3 (06:17→16:17)
[2018-07-29 06:34] LABS: ALANINE AMINOTRANSFERASE 28 U/L (0-55); ALBUMIN 2.3 GM/DL (3.2-4.5); ALKALINE PHOSPHATASE 195 U/L (40-136); BILIRUBIN,TOTAL 0.3 MG/DL (0.1-1.0); BUN/CREATININE RATIO 12; CALCIUM 8.9 MG/DL (8.5-10.1); CARBON DIOXIDE 21 MMOL/L (21-32); CHLORIDE 104 MMOL/L (98-107); CREATININE SERUM 0.82 MG/DL (0.60-1.30); GFR ESTIMATED > 60; GLUCOSE 185 MG/DL (70-105); POTASSIUM 4.1 MMOL/L (3.6-5.0); SODIUM 133 MMOL/L (135-145); TOTAL PROTEIN 7.7 GM/DL (6.4-8.2)
[2018-07-29 07:20] VITALS: BP 148/79
[2018-07-29] MEDS: ASPIRIN E.C. 81 MG (ECOTRIN) TAB PO SCH (08:44)
--- NOTE | 2018-07-29 10:48 | Physical Therapy Daily Note ---
PT Daily Note-Current Subjective Patient in bed pre tx, agrees to PT, no complaints of pain. Appearance Patient in bed post tx with nurse call, phone, tray, all needs met. Mental Status Patient Orientation: Person, Place, Situation Transfers Therapy Code Descriptions/Definitions Functional [place] Measure: 0=Not Assessed/NA 4=Minimal Assistance 1=Total Assistance 5=Supervision or Setup 2=Maximal Assistance 6=Modified [place] 3=Moderate Assistance 7=Complete [place] Therapy Quality Codes: 6 Independent with activity with or without an assistive device 5 Patient requires set up or clean up by helper. Patient completes activity by themselves 4 Supervision or touching assist (CGA). [place] provide cues , steadying assist 3 The helper provides less than half the effort to complete the activity 2 The helper provides more than half the effort to complete the activity 1 Dependent. The helper does all the effort to complete an activity 7 Patient refused to complete or attempt activity 9 The patient did not perform the activity before the current illness or injury 88 Not attempted due to Medical conditions or safety concerns Transfers (B, C, W/C) (FIM): 5 Scootin Rollin Supine to/from Sit: 6 Sit to/from Stand: 5 Bed to/from Chair: 5 Gait Training Gait (FIM): 5 Distance: 150'x2 Gait Level of Assist: 5 Gait Persons Needed: 1 Gait Assistive Device: None Patient has moments of unsteadiness during ambulation but no LOB. Close SBA. Treatments bed mobility and transfers, ambulation Assessment Current Status: Fair Progress improving endurance, patient not SOB after ambulation PT Short Term Goals Short Term Goals Time Frame: Aug 04, 2018 Transfers (B,C,W/C) (FIM): 6 Gait (FIM): 5 Gait Distance Comment: 150' Gait Level of Assist: 5 Gait Assistive Device: Handheld Assist (push IV pole) PT Plan Problem List Problem List: Activity Tolerance, Functional Strength, Safety, Balance, Gait, Transfer Treatment/Plan Treatment Plan: Continue Plan of Care Treatment Plan: Bed Mobility, Education, Functional Activity [place], Functional Strength, Gait, Safety, Therapeutic Exercise, Transfers Treatment Duration: Aug 04, 2018 Frequency: 6 times per week Estimated Hrs Per Day: .25 hour per day (15-30') Patient and/or Family Agrees t: Yes Safety Risks/Education Patient Education: Gait Training, Transfer Techniques, Correct Positioning, Safety Issues Teaching Recipient: Patient Teaching Methods: Demonstration, Discussion Response to Teaching: Reinforcement Needed Time/GCodes Time In: 1035 Time Out: 1045 Total Billed Treatment Time: 10 Total Billed Treatment 1 visit GT Calli' RAJINDER NAGEL PT Jul 29, 2018 10:48
[2018-07-29 11:35] VITALS: BP 156/76
--- NOTE | 2018-07-29 12:39 | Progress Note-Hospitalist ---
Progress Note Progress Notes/Assess & Plan Date Seen 07/29/18 Time Seen by Provider: 12:35 Assessment & Plan The patient is a 78-year-old white male who presented to the emergency room with complaints of abdominal pain. He appeared to be septic. Urine culture and UA suggested urinary tract infection. He has long-standing history of arteriosclerotic vascular disease. He also has a renal transplant and takes antirejection medications. Dr. Kerr felt that he seemed to be confused yesterday. He is alert and pleasant today. UA is growing staph. This is not MRSA and should respond to the empiric Rocephin. His white count has fallen from 11,000 6900. He is afebrile. His antirejection medications will be restarted. Physical exam: The patient is alert and appears to be oriented. He has vague about his sats symptomatology. Lungs are clear to auscultation. Abdomen is soft. Extremities show no pedal edema. Impression: Urinary tract infection. 2.remote renal transplant. 3.arteriosclerotic vascular disease. Plan: Increase activity. Restart azathioprine and tacrolimus from home supply. MIKE WALDRON MD Jul 29, 2018 12:39
[2018-07-29] MEDS: TACROLIMUS 1 MG PO SCH ×2 (16:18→21:32)
[2018-07-29] MEDS: cefTRIAXone 1,000 MG/SWFI 10 ML IV PUSH IV SCH ×2 (16:18)
[2018-07-29 16:28] VITALS: BP 138/62
[2018-07-29 19:47] VITALS: BP 148/66
[2018-07-29] MEDS: azaTHIOprine (IMURAN) 50 MG TAB PO SCH (21:32)
[2018-07-30] VITALS: BP 145/83
[2018-07-30 04:00] VITALS: BP 157/76
[2018-07-30] MEDS: OMEGA 3 (FISH OIL) 1000 MG CAP PO SCH (06:00)
[2018-07-30] MEDS: LACTOBACILLUS ACIDOPHILUS (PROBIOTIC) CAPSULE PO SCH ×3 (06:00→17:13)
[2018-07-30] MEDS: GLIMEPIRIDE 2 MG (AMARYL) TAB PO SCH ×2 (06:00→17:13)
[2018-07-30 08:00] VITALS: BP 130/59
[2018-07-30] MEDS: ASPIRIN E.C. 81 MG (ECOTRIN) TAB PO SCH (09:11)
[2018-07-30] MEDS: TACROLIMUS 1 MG PO SCH ×2 (09:11→21:06)
[2018-07-30 12:00] VITALS: BP 134/64
[2018-07-30 16:40] VITALS: BP 136/74
[2018-07-30] MEDS: cefTRIAXone 1,000 MG/SWFI 10 ML IV PUSH IV SCH ×2 (17:13)
[2018-07-30 20:20] VITALS: BP 148/74
[2018-07-30] MEDS: azaTHIOprine (IMURAN) 50 MG TAB PO SCH (21:06)
[2018-07-30] MEDS: ONDANSETRON 4 MG (ZOFRAN) ORAL DISSOLVE TAB PO PRN (21:10)
[2018-07-30] MEDS: CALCIUM CARBONATE 500 MG (TUMS) TAB.CHEW PO PRN (21:11)
[2018-07-31] VITALS: BP 143/69
[2018-07-31 03:36] VITALS: BP 145/74
[2018-07-31] MEDS: LACTOBACILLUS ACIDOPHILUS (PROBIOTIC) CAPSULE PO SCH ×2 (05:57→11:30)
[2018-07-31] MEDS: GLIMEPIRIDE 2 MG (AMARYL) TAB PO SCH (05:57)
[2018-07-31] MEDS: OMEGA 3 (FISH OIL) 1000 MG CAP PO SCH (05:57)
[2018-07-31 08:00] VITALS: BP 146/64
[2018-07-31] MEDS: TACROLIMUS 1 MG PO SCH (09:06)
[2018-07-31] MEDS: ASPIRIN E.C. 81 MG (ECOTRIN) TAB PO SCH (09:06)
[2018-07-31] MEDS: CALCIUM CARBONATE 500 MG (TUMS) TAB.CHEW PO PRN (09:11)
[2018-07-31] MEDS: ONDANSETRON 4 MG (ZOFRAN) ORAL DISSOLVE TAB PO PRN (09:11)
--- NOTE | 2018-07-31 10:26 | Progress Note-Hospitalist ---
Progress Note Progress Notes/Assess & Plan Date Seen 07/31/18 Time Seen by Provider: 10:21 Assessment & Plan The patient reports that he is feeling much better. His SaO2 is in the 90s on room air. His white count is now normal. He feels as if he were ready for discharge. We discussed the lesion on his left cheek which needs to be addressed and can be done so as an outpatient. He reports that he works for the [employer] and gets off each day at 1300 hours. His next appointment with Dr. Chow is for September 19 but at 09 30 which will not be doable. I allowed that I would make an arrangement for a surgical assessment of this lesion. Physical exam: Color is good he is up and ambulatory. Lungs are clear to auscultation. CV is regular without murmur. Extremities show no pedal edema. there is a 1 cm in diameter nearly circular hyperkeratotic lesion just lateral to the left nasal labial fold. There is some evidence of breakdown of tissue as well. Impression: Sepsis/urinary tract infection. MS SA. 2.lesion left cheek suspicious for malignancy. Plan: Discharge. See discharge sequence for medications and routines. MIKE WALDRON MD Jul 31, 2018 10:26
[2018-07-31] MEDS ORDERED: CEFD300C3 PO (10:42)
--- NOTE | 2018-07-31 10:53 | Discharge Inst-Simple/Standard ---
Discharge Inst-Standard Discharge Medications New, Converted or Re-Newed RX: Transmitted to Pharmacy Patient Instructions/Follow Up Plan of Care/Instructions/FU: Your prescription has been electronically posted to your pharmacy. Medications are as listed on the discharge sequence. Resume previous activities and diet as tolerated. An appointment has been scheduled with Dr. Javi Muse who is an ear nose and throat doctor. This is for Tuesday, September 02 at 1130 in the [place] office office. Activity as Tolerated: Yes Discharge Diet: No Restrictions Copy Copies To 1: HE BROOKE MD, RODNEY K MD Jul 31, 2018 10:51
--- NOTE | 2018-07-31 11:24 | Occupational Ther Daily Note ---
OT Current Status-Daily Note Subjective pt sitting in recliner chair upon OT arrival in no apparent distress. pt agreed to OT TX session with focus on increase independence with ADLS/ functional transfers. pt stated he should be discharging from the hospital this date. pt expressed excitement of discharging. Appearance post OT TX session call light, phone, and tray within reach. all needs met Mental Status/Objective Therapy Code Descriptions/Definitions Functional [place] Measure: 0=Not Assessed/NA 4=Minimal Assistance 1=Total Assistance 5=Supervision or Setup 2=Maximal Assistance 6=Modified [place] 3=Moderate Assistance 7=Complete [place] ADL-Treatment Eating (FIM): 7 Grooming (FIM): 7 (standing at sink for approx 6 minutes. no safety concerns.) Upper Body (FIM): 7 (pt demo ability to gathering clothing from closet using no AD with good saftey awareness) Lower Body Dressing (FIM): 7 (no safety concerns. pt demo ability to gather clothing and perform LB dressing, (underpants, [place] socks, pants) no LOB noted) Toileting (FIM): 7 (standing at toilet) Transfers (B, C, W/C) (FIM): 6 (no AD. 1 LOB noted but eaily correct by patient ) Toilet/Commode Transfer (FIM): 7 (no AD ) Other Treatment pt education on energy conservation techniques prior to performing ADLS. pt demo good transition on technique within task. Education OT Patient Education: Energy conservation Teaching Recipient: Patient Teaching Methods: Discussion Response to Teaching: Verbalize Understanding, Return Demonstration OT Short Term Goals Short Term Goals Grooming(FIM): 5 Bathing(FIM): 5 Toileting(FIM): 5 Transfers (B,C,W/C) (FIM): 6 Toilet/Commode Transfer(FIM): 5 1=Demonstrate adherence to instructed precautions during ADL tasks. 2=Patient will verbalize/demonstrate understanding of assistive devices/ modifications for ADL. 3=Patient will improve strength/tolerance for activity to enable patient to perform ADL's. OT Usp Goals Usp Goals Grooming(FIM): 6 Bathing(FIM): 6 Lower Body Dressing(FIM): 6 Toileting(FIM): 6 Toilet/Commode Transfer(FIM): 6 1=Demonstrate adherence to instructed precautions during ADL tasks. 2=Patient will verbalize/demonstrate understanding of assistive devices/ modifications for ADL. 3=Patient will improve strength/tolerance for activity to enable patient to perform ADL's. OT Education/Plan Problem List/Assessment pt has made good progress towards all goals. noted 1 LOB during ADLs but pt able to self correct. pt would benefit from continue in house OT Services to address LOB during ADLS. pt is safe to return home when discharged from hospital. Discharge Recommendations Plan/Recommendations: Continue POC Therapy D/C Recommendations: Home Independently Target Placement home Treatment Plan/Plan of Care Patient would benefit from OT for education, treatment and training to promote independence in ADL's, mobility, safety and/or upper extremity function for ADL' s. Plan of Care: ADL Retraining, Caregiver Training, Functional Mobility, UE Funct Exercise/Act Treatment Duration: Aug 04, 2018 Frequency: 5 times per week Estimated Hrs Per Day: .5 hour per day Agreement: Yes Rehab Potential: Fair Time/GCodes Start Time: 10:45 Stop Time: 11:10 Billed Treatment Time ADL 25 minutes, 2 units GIFTY HOOVER OT Jul 31, 2018 11:24
== END 2018-07-31 12:40 | disposition home or self-care (01) | DRG 690 ==
LOC: EDUNIT# 14:36 → ER 14:37 → 4TH 16:45
PROVIDERS: ADMIT Internal Medicine; ATTEND Internal Medicine
DX: N30.00 Acute cystitis without hematuria (principal); R91.8 Other nonspecific abnormal finding of lung field; Z94.0 Kidney transplant status; R10.9 Unspecified abdominal pain; R19.7 Diarrhea, unspecified; R51 Headache; I10 Essential (primary) hypertension; E11.9 Type 2 diabetes mellitus without complications; R53.81 Other malaise; L85.9 Epidermal thickening, unspecified; I70.90 Unspecified atherosclerosis; Z87.891 Personal history of nicotine dependence; Z91.041 Radiographic dye allergy status; Z98.890 Other specified postprocedural states
CPT/HCPCS: 36415; 74176; 76700; 80053; 81000; 83690; 85007; 85025; 85027; 87077; 87088; 87186

== ENCOUNTER → 2018-10-03 | Outpatient (CLI) | payer MEDICARE ==
[~2018-10-03] MED LIST changes: +AMLO10TA7 PO; +AMLO5TAB9 PO; +ASPI-983 PO; +AZAT50TA PO; +CEFD300C3 PO; +GLIM2TAB PO; +METF-399 PO; +OMG1KC PO; +TACR1CAP8 PO
== END ==
LOC: LAB FS 08:08
DX: D89.9 Disorder involving the immune mechanism, unspecified (principal); Z94.0 Kidney transplant status
CPT/HCPCS: 36415; 80197

== ENCOUNTER → 2018-12-14 | Outpatient (CLI) | payer MEDICARE ==
[2018-12-14 08:51] LABS: HEMOGLOBIN 14.6 G/DL (13.3-17.7); MEAN CORPUSCULAR HEMOGLOBIN 29 PG (25-34); WHITE BLOOD COUNT 4.8 10^3/uL (4.3-11.0)
[2018-12-14 08:52] LABS: BASOPHILS % (AUTO) 1 % (0-10); EOSINOPHILS # (AUTO) 0.1 10^3/uL (0.0-0.3); EOSINOPHILS % (AUTO) 3 % (0-10); HEMATOCRIT 47 % (40-54); LYMPHOCYTES # (AUTO) 0.9 X 10^3 (1.0-4.0); LYMPHOCYTES % (AUTO) 18 % (12-44); MEAN CORPUSCULAR HGB CONC 31 G/DL (32-36); MEAN CORPUSCULAR VOLUME 92 FL (80-99); MEAN PLATELET VOLUME 10.3 FL (7.4-10.4); MONOCYTES # (AUTO) 0.6 X 10^3 (0.0-1.0); MONOCYTES % (AUTO) 12 % (0-12); NEUTROPHILS # (AUTO) 3.2 X 10^3 (1.8-7.8); NEUTROPHILS % (AUTO) 66 % (42-75); PLATELET COUNT 181 10^3/uL (130-400); RED CELL DISTRIBUTION WIDTH 16.9 % (10.0-14.5)
[2018-12-14 08:56] LABS: BILIRUBIN,URINE NEGATIVE (NEGATIVE); CLARITY,URINE CLEAR; COLOR,URINE YELLOW; GLUCOSE, URINE (UA) NEGATIVE (NEGATIVE); KETONES,URINE NEGATIVE (NEGATIVE); LEUKOCYTE ESTERASE ,URINE NEGATIVE (NEGATIVE); NITRITE,URINE NEGATIVE (NEGATIVE); PROTEIN,URINE 3+ (NEGATIVE); RBC,URINE 0-2 /HPF; UROBILINOGEN,URINE 0.2 MG/DL (NORMAL); WBC,URINE 0-2 /HPF
[2018-12-14 14:55] LABS: CHOLESTEROL 238 MG/DL (< 200); HDL CHOLESTEROL 64 MG/DL (40-60); PHOSPHORUS 3.6 MG/DL (2.3-4.7); TRIGLYCERIDES 70 MG/DL (<150); VLDL CHOLESTEROL 14 MG/DL (5-40)
[2018-12-14 15:50] LABS: ALANINE AMINOTRANSFERASE 15 U/L (0-55); ALBUMIN 3.5 GM/DL (3.2-4.5); ALKALINE PHOSPHATASE 80 U/L (40-136); BILIRUBIN,DIRECT 0.3 MG/DL (0.0-0.3); BILIRUBIN,INDIRECT 0.4 MG/DL; BILIRUBIN,TOTAL 0.7 MG/DL (0.1-1.0); BUN/CREATININE RATIO 12; CALCIUM 9.7 MG/DL (8.5-10.1); CARBON DIOXIDE 26 MMOL/L (21-32); CHLORIDE 102 MMOL/L (98-107); CREATININE SERUM 1.08 MG/DL (0.60-1.30); GFR ESTIMATED > 60; GLUCOSE 131 MG/DL (70-105); POTASSIUM 4.4 MMOL/L (3.6-5.0); SODIUM 139 MMOL/L (135-145); TOTAL PROTEIN 8.2 GM/DL (6.4-8.2)
[2018-12-14 16:16] LABS: MAGNESIUM 0.8 MG/DL (1.6-2.4)
[2018-12-18 14:01] LABS: BK VIRUS PLASMA PT Not Detected (Not Detected)
[2018-12-20 07:04] LABS: BK VIRUS URINE PT Not Detected (Not Detected)
== END ==
LOC: LAB FS 08:06
PROVIDERS: ATTEND Nurse Practitioner Gerontology
DX: Z94.0 Kidney transplant status (principal)
CPT/HCPCS: 36415; 80061; 80069; 80076; 81000; 82247; 82248; 83735; 84075; 84155; 84450; 84460; 85025; 87799; 87910

== ENCOUNTER 2019-07-16 15:38 | Inpatient (IN) | payer MEDICARE ==
[2019-07-16] VITALS (14 sets, daily range): BP systolic 140–187; BP diastolic 68–104
[~2019-07-16] VITALS: Ht 172.7 cm; Wt 72.3 kg
[~2019-07-16 15:38] MED LIST changes: -GLIM2TAB PO; +GLIM2TAB4 PO
--- NOTE | 2019-07-16 15:50 | NUR ---
Pt presents to registration window at approx 1535 checking into ER as directed from [facility] provider Elenita Lazar NP. The provider called ER as patient entering the ER reporting pt is a renal transplant patient and has SaO2 in office varied 84-88%. Provider concerned for transplant patient to get a betyter work up in ER. States only sx in discomfort in chest pertaining to which side he is laying on. pouch making machine operator directed the patient to be given a mask and sent back outside of ER to accompany this nurse coming to bring him to ED 5 via [place] room entrance for triaging under potenial COVID-19 symptoms.
--- NOTE | 2019-07-16 15:55 | NUR ---
Pt on cart and placed on monitoring. SaO2 90-92% room air. Pt reports 2 weeks of flu like sx while still working at [employer] then staying home aside that. Pt with cough/congestion, "feeling like fevers at night" (no temp taking by pt). Pt has discomfort of pressure from excessive phlegm in chest with pain lung chacko bilateral depending on which side he is laying. Feet are edematous almost "twice the normal". Pt has had a sore throat feeling very scratchy. "Feels like breathing thru a small straw." Dr Cunningham was relayed all info before he entered room in [facility] 19 PPE per protocol.
--- OUTSIDE RECORDS SUMMARY | 2019-07-16 16:13 | XMS REPORT | Continuity of Care Document ---
Author Organization Unknown Address Unknown Phone Unavailable Allergies Active Description Code Type Severity Reaction Onset Reported/Identified Relationship to Patient Clinical Status Yes iodine [id number] Drug Allergy Unknown N/A 07/27/2018 Yes povidone-iodine [id number] D rug Allergy Unknown N/A 07/27/2018 Yes soap [id number] Drug Allergy Unknown N/A 07/27/2018 Medications There is no data. 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 1 PERSONAL HISTORY OF NICOTINE DEPENDENCE 07/28/2018 KASHIF RODRIGUEZ LOVELY Ot Z94.0 KIDNEY TRANSPLANT STATUS 07/28/2018 KASHIF RODRIGUEZ LOVELY Ot Z98.89 0 OTHER SPECIFIED POSTPROCEDURAL STATES 07/28/2018 ROWLAND DO LOVELY Ot E11.9 TYPE 2 DIABETES MELLITUS WITHOUT COMPLIC 07/28/2018 ROWLAND DO, LOVELY Ot I10 ESSENTIAL (PRIMARY) HYPERTENSION 07/28/2018 ROWLAND DO, LOVELY Ot N30.00 ACUTE CYSTITIS WITHOUT HEMATURIA 07/28/2018 ROWLAND DO LOVELY Ot R10.9 UNSPECIFIED ABDOMINAL PAIN 07/28/2018 ROWLAND DO, LOVELY Ot R19.7 DIARRHEA, UNSPECIFIED 07/28/2018 ROWLAND DO, LOVELY Ot R51 HEADACHE 07/28/2018 ROWLAND DO, LOVELY Ot R91.8 OTHER NONSPECIFIC ABNORMAL FINDING OF ANGLE 07/28/2018 KASHIF RODRIGUEZ LOVELY Ot Z87.89 1 PERSONAL HISTORY OF NICOTINE DEPENDENCE 07/28/2018 KASHIF DO LOVELY Ot Z94.0 KIDNEY TRANSPLANT STATUS 07/28/2018 KASHIF DO, LOVELY Ot Z98.89 0 OTHER SPECIFIED POSTPROCEDURAL STATES 07/31/2018 ROWLAND DO, LOVELY Ot E11.9 TYPE 2 DIABETES MELLITUS WITHOUT COMPLIC 07/31/2018 ROWLAND DO, LOVELY Ot I10 ESSENTIAL (PRIMARY) HYPERTENSION 07/31/2018 ROWLAND DO, LOVELY Ot I70.90 UNSPECIFIED ATHEROSCLEROSIS 07/31/2018 ROWLAND DO, LOVELY Ot L85.9 EPIDERMAL THICKENING, UNSPECIFIED 07/31/2018 ROWLAND DO, LOVELY Ot N30.00 ACUTE CYSTITIS WITHOUT HEMATURIA 07/31/2018 ROWLAND DO, LOVELY Ot R10.9 UNSPECIFIED ABDOMINAL PAIN 07/31/2018 ROWLAND DO, LOVELY Ot R19.7 DIARRHEA, UNSPECIFIED 07/31/2018 ROWLAND DO, LOVELY Ot R51 HEADACHE 07/31/2018 ROWLAND DO, LOVELY Ot R53.81 OTHER MALAISE 07/31/2018 ROWLAND DO, LOVELY Ot R91.8 OTHER NONSPECIFIC ABNORMAL FINDING OF ANGLE 07/31/2018 KASHIF RODRIGUEZ LOVELY Ot Z87.89 1 PERSONAL HISTORY OF NICOTINE DEPENDENCE 07/31/2018 KASHIF DO LOVELY Ot Z91.04 1 RADIOGRAPHIC DYE ALLERGY STATUS 07/31/2018 KASHIF RODRIGUEZ, LOVELY Ot Z94.0 KIDNEY TRANSPLANT STATUS 07/31/2018 ROWLAND DO LOVELY Ot Z98.89 0 OTHER SPECIFIED POSTPROCEDURAL STATES 10/05/2018 DEBBIE ROBLES [employer]Y [employer]ATIONS MECHANIC Ot 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, 10/05/2018 DEBBIE ROBLES [employer] MECHANIC Ot Z94.0 KIDNEY TRANSPLANT STATUS 10/18/2018 DEBBIE ROBLES [employer] MECHANIC Ot 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, 10/18/2018 DEBBIE ROBLES [employer] MECHANIC Ot Z94.0 KIDNEY TRANSPLANT STATUS 10/23/2018 DEBBIE ROBLES [employer] MECHANIC Ot 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 Results Test Result Range Complete blood count (CBC) with automate d white blood cell (WBC) differential - 07/27/18 15:05 Blood leukocytes automated count (number/volume) 11.0 10*3/uL 4.3-11.0 Blood erythrocytes automated count (number/volume) 3.31 10*6/uL 4.35-5.85 Venous blood hemoglobin measurement (mass/volume) 10.1 g/dL 13.3-17.7 Blood hematocrit (volume fraction) 31 % 40-54 Automated erythrocyte mean corpuscular volume 94 [ foz_us] 80-99 Automated erythrocyte mean corpuscular h emoglobin (mass per erythrocyte) 31 pg 25-34 Automated erythrocyte mean corpuscular h emoglobin concentration measurement (mass/volume) 32 g/dL 32-36 Automated erythrocyte distribution width ratio 15. 7 % 10.0- 14.5 Automated blood platelet count (count/volume) 464 10*3/uL 130-400 Automated blood platelet mean volume measurement 10.3 [foz_us] 7.4-10.4 Automated blood neutrophils/100 leukocytes 90 % 42-75 Automated blood lymphocytes/100 leukocytes 4 % 12-44 Blood monocytes/100 leukocytes 5 % 0-12 Automated blood eosinophils/100 leukocytes 1 % 0-10 Automated blood basophils/100 leukocytes 0 % 0-10 Blood neutrophils automated count (number/volume) 9.9 10*3 1.8-7.8 Blood lymphocytes automated count (number/volume) 0.4 10*3 1.0-4.0 Blood monocytes automated count (number/volume) 0. 6 10*3 0.0-1.0 Automated eosinophil count 0.1 10*3/uL 0 .0-0.3 Automated blood basophil count (count/volume) 0.0 10*3/uL 0.0-0.1 Comprehensive metabolic panel - 07/27/18 15:05 Serum or plasma sodium measurement (moles/volume) 130 mmol/L 135-145 Serum or plasma potassium measurement (moles/volume) 4.7 mmol/L 3.6-5.0 Serum or plasma chloride measurement (moles/volume) 98 mmol/L 98-107 Carbon dioxide 24 mmol/L 21-32 Serum or plasma anion gap determination (moles/volume) 8 mmol/L 5-14 Serum or plasma urea nitrogen measurement (mass/volume ) 19 mg/dL 7-18 Serum or plasma creatinine measurement (mass/volume) 1.08 mg/dL 0.60-1.30 Serum or plasma urea nitrogen/creatinine mass ratio 18 NRG Serum or plasma creatinine measurement w ith calculation of estimated glomerular filtration rate > NRG Serum or plasma glucose measurement (mass/volume) 201 mg/dL 70-105 Serum or plasma calcium measurement (mass/volume) 9.7 mg/dL 8.5-10.1 Serum or plasma total bilirubin measurement (mass/volu me) 0.6 mg/dL 0.1-1.0 Serum or plasma alkaline phosphatase alethea surement (enzymatic activity/volume) 191 U/L 40-136 Serum or plasma aspartate aminotransfera se measurement (enzymatic activity/volume) 22 U/L 5-34 Serum or plasma alanine aminotransferase measurement (enzymatic activity/volume) 23 U/L 0-55 Serum or plasma protein measurement (mass/volume) 8.9 g/dL 6.4-8.2 Serum or plasma albumin measurement (mass/volume) 2.7 g/dL 3.2-4.5 CALCIUM CORRECTED 10.7 mg/dL 8.5-10.1 Lipase - 07/27/18 15:05 Lipase 31 U/L 8-78 Blood manual differential performed dete ction - 07/27/18 15:05 Blood monocytes/100 leukocytes 4 % NRG Manual blood segmented neutrophils/100 leukocytes 91 % NRG Manual blood lymphocytes/100 leukocytes 3 % NRG Manual eosinophils/100 leukocytes in nose 2 % NRG Blood polychromasia detection by light microscopy SLIGHT NRG Blood hypochromia detection by light microscopy SL IGHT NRG Blood stomatocytes detection by light microscopy S LIGHT NRG Blood basophilic stippling detection by light microsco py SLIGHT NRG Complete urinalysis with reflex to cultu re - 07/27/18 15:20 Urine color determination YELLOW NRG Urine clarity determination SLIGHTLY CLOUDY NRG Urine pH measurement by test strip 6 5-9 Specific gravity of urine by test strip 1.015 1.016-1.022 Urine protein assay by test strip, semi-quantitative 4+ NEGATIVE Urine glucose detection by automated test strip NE GATIVE NEGATIVE Erythrocytes detection in urine sediment by light micr oscopy 4+ NEGATIVE Urine ketones detection by automated test strip NE GATIVE NEGATIVE Urine nitrite detection by test strip POSITIVE NEGATIVE Urine total bilirubin detection by test strip NEGA TIVE NEGATIVE Urine urobilinogen measurement by automated test strip (mass/volume) 1 mg/dL NORMAL Urine leukocyte esterase detection by dipstick 3+ NEGATIVE Automated urine sediment erythrocyte cou nt by microscopy (number/high power field) [HPF] NRG Automated urine sediment leukocyte count by microscopy (number/high power field) [HPF] NRG Bacteria detection in urine sediment by light microsco py MODERATE NRG Crystals detection in urine sediment by light microsco py NONE NRG Casts detection in urine sediment by light microscopy NONE NRG Mucus detection in urine sediment by light microscopy NEGATIVE NRG Complete urinalysis with reflex to culture YES NRG Bacterial urine culture - 07/27/18 15:20 Bacterial urine culture [id number] NRG COLONY COUNT >100,000/ML NRG FTX;REPORTABLE SUSCEPTIBILITY REPORT RCD 07/29 09:0 5 NRG RML Sensitivity Panel - 07/27/18 15:20 Oxacillin susceptibility test by minimum inhibitory co ncentration 0.5 NRG Trimethoprim/sulfamethoxazole susceptibi lity test by minimum inhibitoryconcentration S NRG Vancomycin susceptibility test by minimum inhibitory c oncentration 1 NRG Levofloxacin susceptibility test by minimum inhibitory concentration <= NRG Rifampin susceptibility test by minimum inhibitory con centration <= NRG Cefazolin susceptibility test by minimum inhibitory co ncentration <= NRG Nitrofurantoin susceptibility test by mi nimum inhibitory concentration <= NRG Penicillin G susceptibility test by minimum inhibitory concentration > NRG Complete blood count (CBC) with automate d white blood cell (WBC) differential - 07/28/18 04:15 Blood leukocytes automated count (number/volume) 8.6 10*3/uL 4.3-11.0 Blood erythrocytes automated count (number/volume) 3.10 10*6/uL 4.35-5.85 Venous blood hemoglobin measurement (mass/volume) 9.6 g/dL 13.3-17.7 Blood hematocrit (volume fraction) 29 % 40-54 Automated erythrocyte mean corpuscular volume 95 [ foz_us] 80-99 Automated erythrocyte mean corpuscular h emoglobin (mass per erythrocyte) 31 pg 25-34 Automated erythrocyte mean corpuscular h emoglobin concentration measurement (mass/volume) 33 g/dL 32-36 Automated erythrocyte distribution width ratio 15. 8 % 10.0- 14.5 Automated blood platelet count (count/volume) 368 10*3/uL 130-400 Automated blood platelet mean volume measurement 10.4 [foz_us] 7.4-10.4 Automated blood neutrophils/100 leukocytes 87 % 42-75 Automated blood lymphocytes/100 leukocytes 5 % 12-44 Blood monocytes/100 leukocytes 6 % 0-12 Automated blood eosinophils/100 leukocytes 2 % 0-10 Automated blood basophils/100 leukocytes 0 % 0-10 Blood neutrophils automated count (number/volume) 7.5 10*3 1.8-7.8 Blood lymphocytes automated count (number/volume) 0.4 10*3 1.0-4.0 Blood monocytes automated count (number/volume) 0. 5 10*3 0.0-1.0 Automated eosinophil count 0.1 10*3/uL 0 .0-0.3 Automated blood basophil count (count/volume) 0.0 10*3/uL 0.0-0.1 Comprehensive metabolic panel - 07/28/18 04:15 Serum or plasma sodium measurement (moles/volume) 132 mmol/L 135-145 Serum or plasma potassium measurement (moles/volume) 4.5 mmol/L 3.6-5.0 Serum or plasma chloride measurement (moles/volume) 102 mmol/L 98-107 Carbon dioxide 17 mmol/L 21-32 Serum or plasma anion gap determination (moles/volume) 13 mmol/L 5-14 Serum or plasma urea nitrogen measurement (mass/volume ) 17 mg/dL 7-18 Serum or plasma creatinine measurement (mass/volume) 0.93 mg/dL 0.60-1.30 Serum or plasma urea nitrogen/creatinine mass ratio 18 NRG Serum or plasma creatinine measurement w ith calculation of estimated glomerular filtration rate > NRG Serum or plasma glucose measurement (mass/volume) 217 mg/dL 70-105 Serum or plasma calcium measurement (mass/volume) 9.0 mg/dL 8.5-10.1 Serum or plasma total bilirubin measurement (mass/volu me) 0.5 mg/dL 0.1-1.0 Serum or plasma alkaline phosphatase alethea surement (enzymatic activity/volume) 203 U/L 40-136 Serum or plasma aspartate aminotransfera se measurement (enzymatic activity/volume) 36 U/L 5-34 Serum or plasma alanine aminotransferase measurement (enzymatic activity/volume) 30 U/L 0-55 Serum or plasma protein measurement (mass/volume) 7.6 g/dL 6.4-8.2 Serum or plasma albumin measurement (mass/volume) 2.3 g/dL 3.2-4.5 CALCIUM CORRECTED 10.4 mg/dL 8.5-10.1 Complete urinalysis with reflex to cultu re - 07/28/18 13:05 Urine color determination YELLOW NRG Urine clarity determination CLEAR NR G Urine pH measurement by test strip 5 5-9 Specific gravity of urine by test strip 1.015 1.016-1.022 Urine protein assay by test strip, semi-quantitative 3+ NEGATIVE Urine glucose detection by automated test strip 1+ NEGATIVE Erythrocytes detection in urine sediment by light micr oscopy 2+ NEGATIVE Urine ketones detection by automated test strip NE GATIVE NEGATIVE Urine nitrite detection by test strip NEGATIVE NEGATIVE Urine total bilirubin detection by test strip NEGA TIVE NEGATIVE Urine urobilinogen measurement by automated test strip (mass/volume) NORMAL NORMAL Urine leukocyte esterase detection by dipstick 1+ NEGATIVE Automated urine sediment erythrocyte cou nt by microscopy (number/high power field) [HPF] NRG Automated urine sediment leukocyte count by microscopy (number/high power field) [HPF] NRG Bacteria detection in urine sediment by light microsco py TRACE NRG Crystals detection in urine sediment by light microsco py NONE NRG Casts detection in urine sediment by light microscopy PRESENT NRG Mucus detection in urine sediment by light microscopy NEGATIVE NRG Complete urinalysis with reflex to culture YES NRG Hyaline casts detection in urine sediment by light corona roscopy 2-5 NRG Bacterial urine culture - 07/28/18 13:05 Bacterial urine culture NG NRG Complete blood count (CBC) with automate d white blood cell (WBC) differential - 07/29/18 05:49 Blood leukocytes automated count (number/volume) 6.9 10*3/uL 4.3-11.0 Blood erythrocytes automated count (number/volume) 3.11 10*6/uL 4.35-5.85 Venous blood hemoglobin measurement (mass/volume) 9.5 g/dL 13.3-17.7 Blood hematocrit (volume fraction) 30 % 40-54 Automated erythrocyte mean corpuscular volume 96 [ foz_us] 80-99 Automated erythrocyte mean corpuscular h emoglobin (mass per erythrocyte) 31 pg 25-34 Automated erythrocyte mean corpuscular h emoglobin concentration measurement (mass/volume) 32 g/dL 32-36 Automated erythrocyte distribution width ratio 15. 7 % 10.0- 14.5 Automated blood platelet count (count/volume) 344 10*3/uL 130-400 Automated blood platelet mean volume measurement 10.3 [foz_us] 7.4-10.4 Automated blood neutrophils/100 leukocytes 84 % 42-75 Automated blood lymphocytes/100 leukocytes 6 % 12-44 Blood monocytes/100 leukocytes 7 % 0-12 Automated blood eosinophils/100 leukocytes 3 % 0-10 Automated blood basophils/100 leukocytes 0 % 0-10 Blood neutrophils automated count (number/volume) 5.8 10*3 1.8-7.8 Blood lymphocytes automated count (number/volume) 0.4 10*3 1.0-4.0 Blood monocytes automated count (number/volume) 0. 5 10*3 0.0-1.0 Automated eosinophil count 0.2 10*3/uL 0 .0-0.3 Automated blood basophil count (count/volume) 0.0 10*3/uL 0.0-0.1 Comprehensive metabolic panel - 07/29/18 05:49 Serum or plasma sodium measurement (moles/volume) 133 mmol/L 135-145 Serum or plasma potassium measurement (moles/volume) 4.1 mmol/L 3.6-5.0 Serum or plasma chloride measurement (moles/volume) 104 mmol/L 98-107 Carbon dioxide 21 mmol/L 21-32 Serum or plasma anion gap determination (moles/volume) 8 mmol/L 5-14 Serum or plasma urea nitrogen measurement (mass/volume ) 10 mg/dL 7-18 Serum or plasma creatinine measurement (mass/volume) 0.82 mg/dL 0.60-1.30 Serum or plasma urea nitrogen/creatinine mass ratio 12 NRG Serum or plasma creatinine measurement w ith calculation of estimated glomerular filtration rate > NRG Serum or plasma glucose measurement (mass/volume) 185 mg/dL 70-105 Serum or plasma calcium measurement (mass/volume) 8.9 mg/dL 8.5-10.1 Serum or plasma total bilirubin measurement (mass/volu me) 0.3 mg/dL 0.1-1.0 Serum or plasma alkaline phosphatase alethea surement (enzymatic activity/volume) 195 U/L 40-136 Serum or plasma aspartate aminotransfera se measurement (enzymatic activity/volume) 33 U/L 5-34 Serum or plasma alanine aminotransferase measurement (enzymatic activity/volume) 28 U/L 0-55 Serum or plasma protein measurement (mass/volume) 7.7 g/dL 6.4-8.2 Serum or plasma albumin measurement (mass/volume) 2.3 g/dL 3.2-4.5 CALCIUM CORRECTED 10.3 mg/dL 8.5-10.1 FK 506 - 10/03/18 08:17 Tacrolimus blood 8.5 % NRG Complete urinalysis with reflex to cultu re - 12/14/18 08:25 Urine color determination YELLOW NRG Urine clarity determination CLEAR NR G Urine pH measurement by test strip 6.0 5-9 Specific gravity of urine by test strip 1.020 1.016-1.022 Urine protein assay by test strip, semi-quantitative 3+ NEGATIVE Urine glucose detection by automated test strip NE GATIVE NEGATIVE Erythrocytes detection in urine sediment by light micr oscopy TRACE NEGATIVE Urine ketones detection by automated test strip NE GATIVE NEGATIVE Urine nitrite detection by test strip NEGATIVE NEGATIVE Urine total bilirubin detection by test strip NEGA TIVE NEGATIVE Urine urobilinogen measurement by automated test strip (mass/volume) 0.2 mg/dL NORMAL Urine leukocyte esterase detection by dipstick NEG ATIVE NEGATIVE Automated urine sediment erythrocyte cou nt by microscopy (number/high power field) [HPF] NRG Automated urine sediment leukocyte count by microscopy (number/high power field) [HPF] NRG Bacteria detection in urine sediment by light microsco py NONE NRG Squamous epithelial cells detection in u rine sediment by light microscopy 5-10 NRG Crystals detection in urine sediment by light microsco py NONE NRG Casts detection in urine sediment by light microscopy NONE NRG Mucus detection in urine sediment by light microscopy NEGATIVE NRG Complete urinalysis with reflex to culture NO NRG Complete blood count (CBC) with automate d white blood cell (WBC) differential - 12/14/18 08:33 Blood leukocytes automated count (number/volume) 4.8 10*3/uL 4.3-11.0 Blood erythrocytes automated count (number/volume) 5.10 10*6/uL 4.35-5.85 Venous blood hemoglobin measurement (mass/volume) 14.6 g/dL 13.3-17.7 Blood hematocrit (volume fraction) 47 % 40-54 Automated erythrocyte mean corpuscular volume 92 [ foz_us] 80-99 Automated erythrocyte mean corpuscular h emoglobin (mass per erythrocyte) 29 pg 25-34 Automated erythrocyte mean corpuscular h emoglobin concentration measurement (mass/volume) 31 g/dL 32-36 Automated erythrocyte distribution width ratio 16. 9 % 10.0- 14.5 Automated blood platelet count (count/volume) 181 10*3/uL 130-400 Automated blood platelet mean volume measurement 10.3 [foz_us] 7.4-10.4 Automated blood neutrophils/100 leukocytes 66 % 42-75 Automated blood lymphocytes/100 leukocytes 18 % 12-44 Blood monocytes/100 leukocytes 12 % 0-12 Automated blood eosinophils/100 leukocytes 3 % 0-10 Automated blood basophils/100 leukocytes 1 % 0-10 Blood neutrophils automated count (number/volume) 3.2 10*3 1.8-7.8 Blood lymphocytes automated count (number/volume) 0.9 10*3 1.0-4.0 Blood monocytes automated count (number/volume) 0. 6 10*3 0.0-1.0 Automated eosinophil count 0.1 10*3/uL 0 .0-0.3 Automated blood basophil count (count/volume) 0.0 10*3/uL 0.0-0.1 Liver function panel (serum or plasma al k phos, alb, total and direct bili, total protein, ALT, AST) - 12/14/18 08:33 Serum or plasma total bilirubin measurement (mass/volu me) 0.7 mg/dL 0.1-1.0 Serum or plasma alkaline phosphatase alethea surement (enzymatic activity/volume) 80 U/L 40-136 Serum or plasma aspartate aminotransfera se measurement (enzymatic activity/volume) 29 U/L 5-34 Serum or plasma alanine aminotransferase measurement (enzymatic activity/volume) 15 U/L 0-55 Serum or plasma protein measurement (mass/volume) 8.2 g/dL 6.4-8.2 Serum or plasma albumin measurement (mass/volume) 3.5 g/dL 3.2-4.5 Bilirubin direct 0.3 mg/dL 0.0-0.3 Serum or plasma indirect bilirubin measurement (mass/v olume) 0.4 mg/dL NRG Serum or plasma renal function panel (Na , K, Cl, CO2, BUN, Cr, glucose,Ca, phos, alb) - 12/14/18 08:33 Serum or plasma sodium measurement (moles/volume) 139 mmol/L 135-145 Serum or plasma potassium measurement (moles/volume) 4.4 mmol/L 3.6-5.0 Serum or plasma chloride measurement (moles/volume) 102 mmol/L 98-107 Carbon dioxide 26 mmol/L 21-32 Serum or plasma anion gap determination (moles/volume) 11 mmol/L 5-14 Serum or plasma urea nitrogen measurement (mass/volume ) 13 mg/dL 7-18 Serum or plasma creatinine measurement (mass/volume) 1.08 mg/dL 0.60-1.30 Serum or plasma urea nitrogen/creatinine mass ratio 12 NRG Serum or plasma creatinine measurement w ith calculation of estimated glomerular filtration rate > NRG Serum or plasma glucose measurement (mass/volume) 131 mg/dL 70-105 Serum or plasma calcium measurement (mass/volume) 9.7 mg/dL 8.5-10.1 Serum or plasma phosphate measurement (mass/volume) 3.6 mg/dL 2.3-4.7 Magnesium - 12/14/18 08:33 Magnesium 0.8 mg/dL 1.6-2.4 Lipid 1996 panel - 12/14/18 08:33 Serum or plasma triglyceride measurement (mass/volume) 70 mg/dL <150 Serum or plasma cholesterol measurement (mass/volume) 238 mg/dL < 200 Serum or plasma cholesterol in HDL measurement (mass/v olume) 64 mg/dL 40-60 Cholesterol in LDL [mass/volume] in serum or plasma by direct assay 177 mg/dL 1-129 Serum or plasma cholesterol in VLDL measurement (mass/ volume) 14 mg/dL 5-40 [id number] - 12/14/18 08:33 Cytomegalovirus DNA detection by probe a nd target amplification method Not Detected Not Detected Identification of specimen source Blood NRG BK VIRUS - 12/14/18 08:33 Serum or plasma BK virus DNA viral load by probe and target amplification method (units/volume) Not Detected Not Detected BK VIRUS URINE - 12/14/18 08:33 Urine BK virus DNA viral load by probe a nd target amplification method (units/volume) Not Detected Not Detected Encounters ACCT No. Visit Date/Time Discharge Status Pt. Type Provider Facility Loc./Unit Complaint [id number] 12/14/2018 08:06:00 23:59:59 [facility] Outpatient BRANCH, DEBBIE Roman APRN [facility] LAB FS Z94.0 [id number] 10/03/2018 08:08:00 23:59:59 [facility] Outpatient BRANCHDEBBIE APRN [facility] LAB FS Z94.0 D89.9 [id number] 07/27/2018 16:45:00 12:40:00 DIS Inpatient LOVELY ROWLAND DO [facility] 4TH UTI, POSSIBLE PULMONARY MASSES
--- NOTE | 2019-07-16 16:30 | ED Respiratory ---
General Chief Complaint: Respiratory Problems Stated Complaint: OXYGEN LEVEL LOW,FLU SYMPTOMS Source: patient Exam Limitations: no limitations History of Present Illness Date Seen by Provider: Jul 16, 2019 Time Seen by Provider: 17:00 Initial Comments Presents w cough for 2 wks, daily subjective fever and chills relieved by taking Motrin. Hx of renal transplant, Diabetes. Timing/Duration: week (2) Associated Symptoms: chest pain/soreness, cough, fever/chills, shortness of breath Allergies and Home Medications Allergies Coded Allergies: iodine (Verified Allergy, Unknown, 07/27/18) povidone-iodine (Verified Allergy, Unknown, 07/27/18) soap (Verified Allergy, Unknown, 07/27/18) Home Medications Amlodipine Besylate 5 Mg Tablet, 5 MG PO DAILY, (Reported) LAST FILLED #90 08-24-17 Aspirin 81 Mg Tablet.dr, 81 MG PO DAILY, (Reported) Azathioprine 50 Mg Tablet, 100 MG PO HS, (Reported) TAKES 2 (50MG) TABLETS Fish Oil/Dha/Epa 1 Each Capsule, 1 EACH PO HS, (Reported) Glimepiride 2 Mg Tablet, 2 MG PO BID, (Reported) LAST FILLED #60 05-09-18 Magnesium Oxide 400 Mg Capsule, 400 MG PO HS, (Reported) Metformin HCl 1,000 Mg Tablet, 1,000 MG PO BID, (Reported) Tacrolimus 1 Mg Capsule, 1 MG PO BID, (Reported) Patient Home Medication List Home Medication List Reviewed: Yes Review of Systems Review of Systems Constitutional: see HPI, fever, malaise Respiratory: cough, dyspnea on exertion; No hemoptysis; phlegm, short of breath Cardiovascular: No chest pain; edema (chronic LE, worse now); No palpitations Gastrointestinal: No abdominal pain, No loss of appetite, No nausea, No vomiting Musculoskeletal: No back pain, No joint pain Skin: No change in color, No pruritus, No rash Past Qvoltji-Lbcslk-Hjnokl Hx Past Med/Social Hx: Reviewed Nursing Past Med/Soc Hx Patient Social History Alcohol Beverage of Choice: Beer 2nd Hand Smoke Exposure: No Recent Foreign Travel: No Contact w/Someone Who Travel: No Recent Hopitalizations: No Immunizations Up To Date Date of Pneumonia Vaccine: Jan 16, 2011 Seasonal Allergies Seasonal Allergies: No Past Medical History Surgeries: Yes (KIDNEY TRANSPLANT, AAA REPAIR, FISTULA PLACEMENT, ) Respiratory: No Aneurysm, Hypertension Neurological: No Genitourinary: Yes (KIDNEY TRANSPLANT 2004) Dialysis Gastrointestinal: No Musculoskeletal: No Endocrine: Yes Diabetes, Non-Insulin dep HEENT: No Cancer: No Psychosocial: No Integumentary: No Blood Disorders: No Adverse Reaction/Blood Tranf: No Physical Exam Vital Signs - First Documented 07/16/19 15:50 Temp 36.9 Pulse 84 Resp 20 B/P (MAP) 180/85 (116) Pulse Ox 91 O2 Delivery Room Air Capillary Refill : Height: 5'8.00" Weight: 154lbs. 0.0oz. 69.305347bp; 23.4 BMI Method:Stated General Appearance: WD/WN, no apparent distress HEENT: normal ENT inspection Neck: non-tender, supple, normal inspection Respiratory: chest non-tender, lungs clear, no respiratory distress, no accessory muscle use; No respiratory distress, No accessory muscle use Cardiovascular: regular rate, rhythm, other (b/l LE dependent edema - pitting) Gastrointestinal: non tender, soft; No guarding, No rebound Extremities: normal range of motion, non-tender, no calf tenderness, normal capillary refill Neurologic/Psychiatric: no motor/sensory deficits, alert, normal mood/affect, oriented x 3 Skin: normal color, warm/dry; No jaundice, No mottled, No rash Focused Exam Lactate Level 07/16/19 16:40: Lactic Acid Level 1.40 Lactic Acid Level Laboratory Tests Test 07/16/19 16:40 Lactic Acid Level 1.40 MMOL/L (0.50-2.00) Progress/Results/Core Measures Suspected Sepsis SIRS Temperature: Pulse: Respiratory Rate: Laboratory Tests 07/16/19 16:15: White Blood Count 5.1 Blood Pressure / Mean: 07/16/19 16:40: Lactic Acid Level 1.40 Laboratory Tests 07/16/19 16:15: Creatinine 1.55H, Platelet Count 230, Total Bilirubin 0.3 Results/Orders Lab Results Laboratory Tests Test 07/16/19 16:15 07/16/19 16:40 Range/Units White Blood Count 5.1 4.3-11.0 10^3/uL Red Blood Count 3.99 L 4.35-5.85 10^6/uL Hemoglobin 12.3 L 13.3-17.7 G/DL Hematocrit 38 L 40-54 % Mean Corpuscular Volume 96 80-99 FL Mean Corpuscular Hemoglobin 31 25-34 PG Mean Corpuscular Hemoglobin Concent 32 32-36 G/DL Red Cell Distribution Width 16.2 H 10.0-14.5 % Platelet Count 230 130-400 10^3/uL Mean Platelet Volume 9.8 7.4-10.4 FL Neutrophils (%) (Auto) 70 42-75 % Lymphocytes (%) (Auto) 13 12-44 % Monocytes (%) (Auto) 11 0-12 % Eosinophils (%) (Auto) 6 0-10 % Basophils (%) (Auto) 1 0-10 % Neutrophils # (Auto) 3.5 1.8-7.8 X 10^3 Lymphocytes # (Auto) 0.6 L 1.0-4.0 X 10^3 Monocytes # (Auto) 0.5 0.0-1.0 X 10^3 Eosinophils # (Auto) 0.3 0.0-0.3 10^3/uL Basophils # (Auto) 0.1 0.0-0.1 10^3/uL Sodium Level 138 135-145 MMOL/L Potassium Level 4.6 3.6-5.0 MMOL/L Chloride Level 102 98-107 MMOL/L Carbon Dioxide Level 26 21-32 MMOL/L Anion Gap 10 5-14 MMOL/L Blood Urea Nitrogen 19 H 7-18 MG/DL Creatinine 1.55 H 0.60-1.30 MG/DL Estimat Glomerular Filtration Rate 43 BUN/Creatinine Ratio 12 Glucose Level 206 H 70-105 MG/DL Calcium Level 9.0 8.5-10.1 MG/DL Corrected Calcium 10.1 8.5-10.1 MG/DL Total Bilirubin 0.3 0.1-1.0 MG/DL Aspartate Amino Transf (AST/SGOT) 20 5-34 U/L Alanine Aminotransferase (ALT/SGPT) 12 0-55 U/L Alkaline Phosphatase 88 40-136 U/L Troponin I < 0.30 <0.30 NG/ML Total Protein 6.3 L 6.4-8.2 GM/DL Albumin 2.6 L 3.2-4.5 GM/DL Lactic Acid Level 1.40 0.50-2.00 MMOL/L Micro Results Microbiology 07/16/19 Influenza Types A,B Antigen (AMRILEE) - Final, Complete My Orders Orders - ROVENSTINE,ROBERT L DO Ed Iv/Invasive Line Start (07/16/19 16:27) Chest 1 View Ap/Pa Only (07/16/19 16:27) Cbc With Automated Diff (07/16/19 16:27) Comprehensive Metabolic Panel (07/16/19 16:27) Blood Culture (07/16/19 16:27) Influenza A And B Antigens (07/16/19 16:27) Lactic Acid Analyzer (07/16/19 16:27) Probnp Fs (07/16/19 16:27) Troponin I Fs (07/16/19 16:27) Urinalysis (07/16/19 16:27) Ceftriaxone For Iv Use (Rocephin For I (07/16/19 17:30) Azithromycin Injection (Zithromax Inject (07/16/19 17:30) Vital Signs/I&O 07/16/19 15:50 Temp 36.9 Pulse 84 Resp 20 B/P (MAP) 180/85 (116) Pulse Ox 91 O2 Delivery Room Air Capillary Refill : Departure Communication (Admissions) Time/Spoke to Admitting Phy: 17:[address] Kim regarding pt HPI, PMed Hx, labs and CXR results. Agrees to accept for admission. Covid swab done and results pending. Respiratory precautions taken and full PPE donned for this patient exposure. Impression Primary Impression: Pneumonia Qualified Codes: J18.1 - Lobar pneumonia, unspecified organism Disposition: ADMITTED INPATIENT Condition: Stable Departure-Patient Inst. Referrals: HE BROOKE MD (PCP/Family) Primary Care Physician ROBERT SAXENA DO Jul 16, 2019 16:30
[2019-07-16 16:42] LABS: HEMATOCRIT 38 % (40-54); HEMOGLOBIN 12.3 G/DL (13.3-17.7); LYMPHOCYTES % (AUTO) 13 % (12-44); MEAN CORPUSCULAR HEMOGLOBIN 31 PG (25-34); MEAN CORPUSCULAR HGB CONC 32 G/DL (32-36); MEAN CORPUSCULAR VOLUME 96 FL (80-99); MEAN PLATELET VOLUME 9.8 FL (7.4-10.4); MONOCYTES % (AUTO) 11 % (0-12); NEUTROPHILS % (AUTO) 70 % (42-75); PLATELET COUNT 230 10^3/uL (130-400); RED CELL DISTRIBUTION WIDTH 16.2 % (10.0-14.5); WHITE BLOOD COUNT 5.1 10^3/uL (4.3-11.0)
[2019-07-16 16:43] LABS: BASOPHILS # (AUTO) 0.1 10^3/uL (0.0-0.1); BASOPHILS % (AUTO) 1 % (0-10); EOSINOPHILS # (AUTO) 0.3 10^3/uL (0.0-0.3); EOSINOPHILS % (AUTO) 6 % (0-10); LYMPHOCYTES # (AUTO) 0.6 X 10^3 (1.0-4.0); MONOCYTES # (AUTO) 0.5 X 10^3 (0.0-1.0); NEUTROPHILS # (AUTO) 3.5 X 10^3 (1.8-7.8)
--- NOTE | 2019-07-16 17:00 | NUR ---
Dr Cunningham reporting tests to pt and concerns for pneumonia and plan to admit as appropriate to tx. Pt very concerned and considered waiting till tomorrow and staff stressed importance of today (now). Pt is and has no med list here, anti-rejection meds at home. Pt very worried about needing to go home. Explained if left ER here it would be AMA, if arriving at a future time to [place] it would meqan to start over in ER again. Pt confirms agreeance to go for the admit to [place].
[2019-07-16] MEDS ORDERED: MAGN400C PO (17:06)
[2019-07-16] MEDS ORDERED: FISH1CAP15 PO (17:06)
[2019-07-16 17:16] LABS: ALANINE AMINOTRANSFERASE 12 U/L (0-55); ALBUMIN 2.6 GM/DL (3.2-4.5); ALKALINE PHOSPHATASE 88 U/L (40-136); BILIRUBIN,TOTAL 0.3 MG/DL (0.1-1.0); BUN/CREATININE RATIO 12; CARBON DIOXIDE 26 MMOL/L (21-32); CHLORIDE 102 MMOL/L (98-107); CREATININE SERUM 1.55 MG/DL (0.60-1.30); GFR ESTIMATED 43; GLUCOSE 206 MG/DL (70-105); POTASSIUM 4.6 MMOL/L (3.6-5.0); SODIUM 138 MMOL/L (135-145); TOTAL PROTEIN 6.3 GM/DL (6.4-8.2)
--- NOTE | 2019-07-16 17:18 | Diagnostic Imaging Report ---
EXAMINATION: Chest 1 view HISTORY: Low O2 sats. Flu-like symptoms. Shortness of breath. COMPARISON: 01/28/2011. FINDINGS: Interval increase in patchy opacities is seen in the mid and lower right lung and mid left lung. There has been interval development of a small right pleural effusion. No pneumothorax. The cardiac silhouette is unremarkable. There is calcified aortic atherosclerotic plaque. No acute osseous abnormalities. IMPRESSION: 1. Interval increase in patchy opacities in the mid and lower right lung and mid left lung. This may represent inflammatory or infectious etiology. 2. Development of a small right pleural effusion. Dictated by: Dictated on workstation # [id number]
--- NOTE | 2019-07-16 17:25 | NUR ---
Pt swabbed for COVID-19. Pt remains with mask in place with brief removal for RN in COVID protocol PPE with N95 mask/shield to swab.
[2019-07-16] MEDS ORDERED: AZITHROMYCIN INJECTION 500 MG in NS (IVPB) 250 ML IV ONE (17:30)
[2019-07-16] MEDS ORDERED: cefTRIAXone FOR IV USE 1,000 MG in WATER (STERILE) FOR INJECTION 10 ML IV ONE (17:30)
--- NOTE | 2019-07-16 17:45 | NUR ---
PLan to call [facility] for transfer. Loli Ann RN making arrangements for this RN while nurse in isolation.
--- OUTSIDE RECORDS SUMMARY | 2019-07-16 17:45 | XMS REPORT | Continuity of Care Document ---
Author Organization Unknown Address Unknown Phone Unavailable Allergies Active Description Code Type Severity Reaction Onset Reported/Identified Relationship to Patient Clinical Status Yes iodine [id number] Drug Allergy Unknown N/A 07/27/2018 Yes povidone-iodine [id number] D rug Allergy Unknown N/A 07/27/2018 Yes soap [id number] Drug Allergy Unknown N/A 07/27/2018 Medications There [...] OTHER SPECIFIED POSTPROCEDURAL STATES 10/05/2018 DEBBIE ROBLES MANGLE ROLL OPERATOR Ot 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, 10/05/2018 DEBBIE ROBLES MANGLE ROLL OPERATOR Ot Z94.0 KIDNEY TRANSPLANT STATUS 10/18/2018 DEBBIE ROBLES MANGLE ROLL OPERATOR Ot 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, 10/18/2018 DEBBIE ROBLES MANGLE ROLL OPERATOR Ot Z94.0 KIDNEY TRANSPLANT STATUS 10/23/2018 DEBBIE ROBLES MANGLE ROLL OPERATOR Ot 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, 10/23/2018 DEBBIE ROBLES MANGLE ROLL OPERATOR Ot Z94.0 KIDNEY TRANSPLANT STATUS 11/13/2018 TRAVIS [...] culture - 07/27/18 15:20 Bacterial urine culture [id number] NRG COLONY COUNT >100,000/ML NRG FTX;REPORTABLE SUSCEPTIBILITY [...] VLDL measurement (mass/ volume) 14 mg/dL 5-40 [id number] - 12/14/18 08:33 Cytomegalovirus DNA detection by [...] amplification method (units/volume) Not Detected Not Detected Influenza virus A and B antigen detectio n - 07/16/19 16:08 FLU RESULT NEGATIVE FOR INFLUENZA A AND B ANTIGENS BY IA NRG Complete blood count (CBC) with automate d white blood cell (WBC) differential - 07/16/19 16:15 Blood leukocytes automated count (number/volume) 5.1 10*3/uL 4.3-11.0 Blood erythrocytes automated count (number/volume) 3.99 10*6/uL 4.35-5.85 Venous blood hemoglobin measurement (mass/volume) 12.3 g/dL 13.3-17.7 Blood hematocrit (volume fraction) 38 % 40-54 Automated erythrocyte mean corpuscular volume 96 [ foz_us] 80-99 Automated erythrocyte mean corpuscular h emoglobin (mass per erythrocyte) 31 pg 25-34 Automated erythrocyte mean corpuscular h emoglobin concentration measurement (mass/volume) 32 g/dL 32-36 Automated erythrocyte distribution width ratio 16. 2 % 10.0- 14.5 Automated blood platelet count (count/volume) 230 10*3/uL 130-400 Automated blood platelet mean volume measurement 9.8 [foz_us] 7.4-10.4 Automated blood neutrophils/100 leukocytes 70 % 42-75 Automated blood lymphocytes/100 leukocytes 13 % 12-44 Blood monocytes/100 leukocytes 11 % 0-12 Automated blood eosinophils/100 leukocytes 6 % 0-10 Automated blood basophils/100 leukocytes 1 % 0-10 Blood neutrophils automated count (number/volume) 3.5 10*3 1.8-7.8 Blood lymphocytes automated count (number/volume) 0.6 10*3 1.0-4.0 Blood monocytes automated count (number/volume) 0. 5 10*3 0.0-1.0 Automated eosinophil count 0.3 10*3/uL 0 .0-0.3 Automated blood basophil count (count/volume) 0.1 10*3/uL 0.0-0.1 Comprehensive metabolic panel - 07/16/19 16:15 Serum or plasma sodium measurement (moles/volume) 138 mmol/L 135-145 Serum or plasma potassium measurement (moles/volume) 4.6 mmol/L 3.6-5.0 Serum or plasma chloride measurement (moles/volume) 102 mmol/L 98-107 Carbon dioxide 26 mmol/L 21-32 Serum or plasma anion gap determination (moles/volume) 10 mmol/L 5-14 Serum or plasma urea nitrogen measurement (mass/volume ) 19 mg/dL 7-18 Serum or plasma creatinine measurement (mass/volume) 1.55 mg/dL 0.60-1.30 Serum or plasma urea nitrogen/creatinine mass ratio 12 NRG Serum or plasma creatinine measurement w ith calculation of estimated glomerular filtration rate 43 NRG Serum or plasma glucose measurement (mass/volume) 206 mg/dL 70-105 Serum or plasma calcium measurement (mass/volume) 9.0 mg/dL 8.5-10.1 Serum or plasma total bilirubin measurement (mass/volu me) 0.3 mg/dL 0.1-1.0 Serum or plasma alkaline phosphatase alethea surement (enzymatic activity/volume) 88 U/L 40-136 Serum or plasma aspartate aminotransfera se measurement (enzymatic activity/volume) 20 U/L 5-34 Serum or plasma alanine aminotransferase measurement (enzymatic activity/volume) 12 U/L 0-55 Serum or plasma protein measurement (mass/volume) 6.3 g/dL 6.4-8.2 Serum or plasma albumin measurement (mass/volume) 2.6 g/dL 3.2-4.5 CALCIUM CORRECTED 10.1 mg/dL 8.5-10.1 TROPONIN I FS - 07/16/19 16:15 TROPONIN I FS < 0.30 <0.30 Blood lactic acid measurement (moles/vol ume) - 07/16/19 16:40 Blood lactic acid measurement (moles/volume) 1.40 mmol/L 0.50-2.00 Encounters ACCT No. Visit Date/Time Discharge Status Pt. Type Provider Facility Loc./Unit Complaint [id number] 12/14/2018 08:06:00 23:59:59 CLS Outpatient BRANCH, DEBBIE Roman APRN [facility] LAB FS Z94.0 [id number] 10/03/2018 08:08:00 23:59:59 CLS Outpatient BRANCH, DEBBIE Roman APRN [facility] LAB FS Z94.0 D89.9 [id number] 07/27/2018 16:45:00 12:40:00 DIS Inpatient LOVELY ROWLAND DO [facility] 4TH UTI, POSSIBLE PULMONARY MASSES [id number] 07/16/2019 16:43:00 Document Registration
--- NOTE | 2019-07-16 18:20 | NUR ---
[facility] here to get patient and transport to [facility]. Pt will be placed on O2 at 2 L/M for varied sats 92-93%. Pt asked RN to take 1 set of car keys of his 2 sets as he may see if a friend will move it before discharged. Pt is to ask [place] RN/staff to call [place] [facility] if he assigns someone to do this to notify a name to allow our release of belongings process out of ER registration. This is a single car lala attached on a car remote with a yellow tag that identifies 2017 white car. The make and model is blurred. Pt was in a parking spot in ED closer to ER entrance like 3-4 space. Pt departed in his clothing and shoes in belongings bag. Pt has his cell phone in shirt pocket, a badge for [employer], and small brown case that he reports has important cards in with 2 ink pens. Pt has stable vitals.
--- NOTE | 2019-07-16 18:45 | NUR ---
This RN received report from SOREN Chakraborty in [facility]. This RN will given report to SOREN Vasquez for shift commander to take over. Pt in route at 1825. Should arrive on floor around 1910.
--- NOTE | 2019-07-16 19:10 | NUR ---
Stephania Bustillos admitted to room 431-1, with an admitting diagnosis of , on 07/16/19 from ED via stretcher, accompanied by EMS. STEPHANIA BUSTILLOS JR introduced to surroundings, call light, bed controls, phone, TV, temperature control, lights, meal times, smoking policy, visitor policy, side rail policy, bathrooms and showers. Patient Rights given to patient in the handbook.STEPHANIA BUSTILLOS JR verbalizes understanding that [facility] is not responsible for the loss or damage to any personal effects or valuables that are kept in the patients posession during their hospitalization. STEPHANIA BUSTILLOS JR verbalizes understanding of Interdisciplinary Patient Education. Patient and/or family were informed about the Rapid Response Team and its purpose.
[2019-07-16] MEDS ORDERED: RT-ALBUTEROL HFA (PROAIR HFA) 8.5 GM IH PRN (19:30)
[2019-07-16] MEDS ORDERED: CATHETER FLUSH 10 ML SYR IV PRN (19:30)
[2019-07-16] MEDS: CATHETER FLUSH 10 ML SYR IV SCH (19:43)
--- NOTE | 2019-07-16 19:58 | NUR ---
Notified Dr. Gamble pt's BP 190/90 and pt's request for DNR status. Received order for DNR and hydralizine.
[2019-07-16] MEDS ORDERED: hydrALAZINE (APESOLINE) 20 MG/ML VIAL IV PRN (20:00)
[2019-07-16] MEDS ORDERED: LOPERAMIDE 2 MG (IMODIUM) TABLET PO PRN (20:30)
[2019-07-16] MEDS ORDERED: amLODIPine 5 MG (NORVASC) TAB PO ONE (20:30)
[2019-07-16] MEDS ORDERED: DOCUSATE SODIUM 100 MG (COLACE) CAP PO PRN (20:30)
[2019-07-16] MEDS ORDERED: HYDROcodone/APAP 5 MG/325 MG (LORTAB) TAB PO PRN (20:30)
[2019-07-16] MEDS ORDERED: CALCIUM CARBONATE 500 MG (TUMS) TAB.CHEW PO PRN (20:30)
[2019-07-16] MEDS ORDERED: ALPRAZolam 0.25 MG (XANAX) TAB PO PRN (20:30)
[2019-07-16] MEDS ORDERED: diphenhydrAMINE 25 MG TAB (BENADRYL) PO PRN (20:30)
[2019-07-16] MEDS ORDERED: cloNIDine 0.1 MG (CATAPRES) TAB PO PRN (20:30)
[2019-07-16] MEDS ORDERED: ONDANSETRON 4 MG/2 ML (SDV) Z0FRAN IVP PRN (20:30)
[2019-07-16] MEDS ORDERED: ACETAMINOPHEN 500 MG TAB (TYLENOL) PO PRN (20:30)
[2019-07-16] MEDS ORDERED: ENOXAPARIN 40 MG/0.4 ML (LOVENOX) SYR SC SCH (20:30)
[2019-07-16] MEDS ORDERED: amLODIPine 5 MG (NORVASC) TAB ONE (20:31)
[2019-07-16] MEDS ORDERED: ENOXAPARIN 40 MG/0.4 ML (LOVENOX) SYR ONE (20:31)
[2019-07-16] MEDS: SENNA W/DOCUSATE (SENOKOT S) TABLET PO SCH (20:47)
[2019-07-17 05:03] VITALS: BP 178/79
[2019-07-17] MEDS: CATHETER FLUSH 10 ML SYR IV SCH ×3 (05:07→20:05)
[2019-07-17 05:49] LABS: ALBUMIN 2.5 GM/DL (3.2-4.5); BILIRUBIN,TOTAL 0.3 MG/DL (0.1-1.0); CALCIUM 8.6 MG/DL (8.5-10.1); CREATININE SERUM 1.3 MG/DL (0.60-1.30); POTASSIUM 4.3 MMOL/L (3.6-5.0); TOTAL PROTEIN 5.8 GM/DL (6.4-8.2)
[2019-07-17 08:43] VITALS: BP 144/74
[2019-07-17] MEDS: amLODIPine 5 MG (NORVASC) TAB PO SCH (08:51)
[2019-07-17] MEDS: SENNA W/DOCUSATE (SENOKOT S) TABLET PO SCH ×2 (08:51→20:05)
[2019-07-17] MEDS ORDERED: FUROSEMIDE 40 MG/4 ML INJ (LASIX) IVP NR (09:45)
--- NOTE | 2019-07-17 09:45 | NUR ---
Received dietary consult for malnutrition. Note pt currently under investigation of COVID-19, with results pending. Will monitor intake and reassess 07/18. Mercedes Edgar, MS, RD, LD
[2019-07-17] MEDS ORDERED: AZAT50TA16 PO (10:21)
[2019-07-17] MEDS ORDERED: MAGN250T13 PO (10:23)
[2019-07-17] MEDS ORDERED: MULT1TAB69 PO (10:24)
--- NOTE | 2019-07-17 10:53 | NUR ---
CALLED THE PT USING HIS ROOM PHONE, WENT THRU THE EXT MED HISTORY AND CALLED HIS MAIL ORDER PHARM TO COMPLETE THE MED REC 06-03-2019 GLIMEPIRIDE 2MG #180/90DS (THIS DID NOT SHOW ON THE EXT MED HISTORY) PT SAYS HE TAKES AMLODIPINE 10MG 1 TAB DAILY- HOWEVER [facility] AND [facility] HAS NOT FILLED THIS STRENGTH. MAIL ORDER HAS FILLED THE 5MG IN 2018 BUT THAT WAS THE LAST MAIL OUT. WHEN I ASKED THE PT HE STATES HE HAD A STOCK BUILT UP AND HAS NOT NEEDED TO RE-ORDER. I INQUIRED ABOUT WHAT DR PRESCRIBED THIS MEDICATION (I WAS HOPING TO CALL THE OFFICE AND GET CLARIFICATION OF THIS MED) UNFORTUNATELY HE LISTED DR. HELIO RASCON THAT THE PT SAID IS NOW RETIRED. I LET THE HOSPITALIST KNOW OF MY FINDINGS AND CONCERNS- HE AGREED TO REMOVE THIS FROM THE MED REC AT THIS TIME OTC MEDS: [employer] MAGNESIUM ASPIRIN
--- NOTE | 2019-07-17 11:04 | History & Physical-Hospitalist ---
History of Present Illness HPI/Chief Complaint Wilder Swift (Bill) is a 79-year-old male with past medical history of renal transplant on immunosuppression, hypertension, diabetes, who presented with shortness of breath. He reports that he has been having trouble for the past couple weeks. He reports having subjective fevers at home. He reports a dry cough. He reports dyspnea with exertion. He reports orthopnea. He reports waking up a few times a night short of breath. He reports lower extremity swelling. He has not had an echocardiogram since his transplant evaluation. He reports some chest discomfort yesterday. He denies any chest pain at this time. Source: patient Exam Limitations: no limitations Date Seen 07/17/19 Time Seen by a Provider: 09:05 Attending Physician Reed Su MD PCP Mike Chow MD Referring Physician Date of Admission Jul 16, 2019 at 17:26 Home Medications & Allergies Home Medications Reviewed patient Home Medication Reconciliation performed by pharmacy medication reconciliations gate technician and/or nursing. Patients Allergies have been reviewed. Allergies Allergies Coded Allergies iodine (Verified Allergy, Unknown, 07/27/18) povidone-iodine (Verified Allergy, Unknown, 07/27/18) soap (Verified Allergy, Unknown, 07/27/18) Past Lorsghu-Bcwgxt-Wufdmg Hx Past Med/Social Hx: Reviewed Nursing Past Med/Soc Hx Patient Social History Alcohol Use: Occasionally Uses Alcohol Beverage of Choice: Beer Recreational Drug Use: No Smoking Status: Former Smoker Former Smoker, Quit: Apr 18, 1994 2nd Hand Smoke Exposure: No Recent Foreign Travel: No Contact w/other who traveled: No Recent Hopitalizations: No Recent Infectious Disease Expo: No (unknown; works at [employer]) Immunizations Up To Date Tetanus Booster (TDap): Unknown Date of Pneumonia Vaccine: Apr 18, 2014 Date of Influenza Vaccine: Mar 17, 2020 Seasonal Allergies Seasonal Allergies: No Past Medical History Surgeries: Bowel Surgery, Kidney Transplant Cardiac: Aneurysm, Hypertension Genitourinary: Renal Failure, Dialysis Gastrointestinal: Diverticulosis Endocrine: Diabetes, Non-Insulin dep History of Blood Disorders: No Adverse Reaction to Blood Kyle: No Review of Systems Constitutional: no symptoms reported EENTM: no symptoms reported Respiratory: cough, dyspnea on exertion, short of breath Cardiovascular: chest pain Gastrointestinal: no symptoms reported Genitourinary: no symptoms reported Musculoskeletal: no symptoms reported Skin: no symptoms reported Psychiatric/Neurological: No Symptoms Reported Physical Exam Physical Exam Vital Signs Vital Signs - First Documented Capillary Refill : Less Than 3 SecondsLess Than 3 Seconds Height, Weight, BMI Height: 5'8.00" Weight: 154lbs. 0.0oz. 69.150969ea; 25.31 BMI Method:Stated General Appearance: No Apparent Distress, Chronically ill Neck: Normal Inspection, Supple Respiratory: Lungs Clear, Normal Breath Sounds, No Respiratory Distress Cardiovascular: Regular Rate, Rhythm, No Murmur Gastrointestinal: Normal Bowel Sounds, Non Tender, Soft Extremity: Normal Inspection, Non Tender, Pedal Edema Neurologic/Psychiatric: Alert, Oriented x3, No Motor/Sensory Deficits, Normal Mood/Affect Skin: Normal Color, Warm/Dry Results Results/Procedures Labs Laboratory Tests 07/16/19 16:15 07/17/19 05:00 Patient resulted labs reviewed. Imaging: Reviewed Imaging Report Assessment/Plan Admission Diagnosis Acute respiratory failure with hypoxia Admission Status: Inpatient Order (span 2 midnights) Reason for Inpatient Admission: Respiratory failure requiring further treatment and evaluation Assessment and Plan Acute respiratory failure with hypoxia Possible pneumonia Possible heart failure PUI for COVID19 Reported fevers at home Afebrile since admission WBC remains normal Flu negative Strep negative COVID pending BNP elevated at 2500 on admission Creatinine 1.3, slightly above reported baseline 1.1 Give one-time dose of Lasix Perform echo after COVID testing results Repeat troponin Check procalcitonin Continue Rocephin and azithromycin for possible pneumonia Renal transplant Immunosuppression Chronic kidney disease Creatinine 1.5 on admission, reported baseline 1.1 Creatinine improved to 1.3 this morning Giving one-time dose of Lasix today Continue to monitor Avoid nephrotoxins as able Continue immunosuppression regimen HTN Continue amlodipine Clonidine as needed IV Hydralazine as needed Type II diabetes mellitus Sliding scale insulin DVT prophylaxis: Lovenox Diagnosis/Problems Diagnosis/Problems (1) Acute respiratory failure with hypoxia Status: Acute (2) Elevated brain natriuretic peptide (BNP) level Status: Acute (3) Kidney transplant recipient Status: Chronic (4) 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
[2019-07-17 14:30] VITALS: BP 120/70
[2019-07-17] MEDS ORDERED: AZITHROMYCIN 250 MG/NS 250 ML IVPB IV SCH ×2 (17:00)
[2019-07-17] MEDS ORDERED: cefTRIAXone 1,000 MG/SWFI 10 ML IV PUSH IV SCH ×2 (17:00)
[2019-07-17] MEDS ORDERED: ENOXAPARIN 40 MG/0.4 ML (LOVENOX) SYR SC SCH (17:00)
[2019-07-17 18:13] VITALS: BP 120/68
[2019-07-17 19:59] VITALS: BP 134/70
[2019-07-17] MEDS ORDERED: azaTHIOprine (IMURAN) 50 MG TAB PO SCH (21:00)
[2019-07-18 00:34] VITALS: BP 154/76
[2019-07-18 04:25] VITALS: BP 135/75
[2019-07-18] MEDS: CATHETER FLUSH 10 ML SYR IV SCH ×2 (04:31→09:09)
[2019-07-18 05:16] LABS: CALCIUM 8.4 MG/DL (8.5-10.1); CREATININE SERUM 1.53 MG/DL (0.60-1.30); MAGNESIUM 1.5 MG/DL (1.6-2.4); POTASSIUM 4.5 MMOL/L (3.6-5.0)
[2019-07-18 08:00] VITALS: BP 150/74
[2019-07-18] MEDS ORDERED: TACROLIMUS 0.5 MG (PROGRAF) CAP NON-FORMULARY PO SCH (09:00)
[2019-07-18] MEDS: amLODIPine 5 MG (NORVASC) TAB PO SCH (09:08)
[2019-07-18] MEDS: MAGNESIUM 1 GM/100 ML IVPB 100 ML IV SCH ×3 (09:08→11:15)
[2019-07-18] MEDS: SENNA W/DOCUSATE (SENOKOT S) TABLET PO SCH (09:08)
--- NOTE | 2019-07-18 09:31 | Diagnostic Imaging Report ---
INDICATION: Shortness of breath. Time of exam 9:14 AM Correlation is made with prior chest from 07/16/2019. The heart size is stable. Left lung appears to be clear. There is some infiltrate in the right base. A slightly nodular density in the right suprahilar location is noted. This appears to have been present on prior exams dating back to 2010 may represent a granuloma. No significant effusion is seen. There is no pneumothorax. IMPRESSION: Right basilar infiltrate suggestive of pneumonia. Dictated by: Dictated on workstation # [id number]
[2019-07-18] MEDS ORDERED: AMLO5TAB9 PO (10:18)
--- NOTE | 2019-07-18 10:27 | Discharge Summary ---
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 He was evaluated for coronavirus but tested negative. There was also concern for pneumonia and he was initially treated with IV antibiotics but this was ruled out. His symptoms were consistent with heart failure and he received Lasix which improved his symptoms. Due to the isolation for his coronavirus testing, the echocardiogram was postponed. He returned to his baseline by the day of discharge. He should have an echocardiogram performed within a week as an outpatient. He should follow-up with his primary care physician within one to 2 weeks. Labs and Pending Lab Test: Laboratory Tests 07/18/19 04:45: Sodium Level 139, Potassium Level 4.5, Chloride Level 105, Carbon Dioxide Level 23, Anion Gap 11, Blood Urea Nitrogen 21H, Creatinine 1.53H, Estimat Glomerular Filtration Rate 44, BUN/Creatinine Ratio 14, Glucose Level 131H, Calcium Level 8.4L, Magnesium Level 1.5L, B-Type Natriuretic Peptide 486.0H, Procalcitonin 0.05 Microbiology 07/16/19 Blood Culture - Preliminary, Resulted No growth 07/16/19 Throat Culture - Preliminary, Resulted No Beta Strep isolated Home Meds Active Amlodipine Besylate 5 Mg Tablet 5 Mg PO DAILY 90 Days Reported Multivitamins (Multivitamin) 1 Each Tablet 1 Each PO DAILY Magnesium (Magnesium Oxide) 250 Mg Tablet 250 Mg PO DAILY TAKES 400MG (FROM THE PHARMACY) AND 250MH (OTC) Imuran (Azathioprine) 50 Mg Tablet 100 Mg PO HS TAKES 2 (50MH) TABS TO EQUAL 100MG Fish Oil 1,200 mg Fish Oil (Fish Oil/Dha/Epa) 1 Each Capsule 1 Each PO HS Magnesium (Magnesium Oxide) 400 Mg Capsule 400 Mg PO DAILY TAKES 400MG (FROM THE PHARMACY) AND 250MH (OTC) Glimepiride 2 Mg Tablet 2 Mg PO BID Aspirin EC (Aspirin) 81 Mg Tablet.dr 81 Mg PO DAILY Metformin HCl 1,000 Mg Tablet 1,000 Mg PO BID Tacrolimus 1 Mg Capsule 1 Mg PO BID Assessment/Pt Instructions Take medications as prescribed. Begin taking amlodipine for hypertension. He need to have an echocardiogram done as an outpatient. Follow up with her primary care physician. Discharge Planning: <30 minutes discharge planning Discharge Instructions Discharge Diet: Low Sodium Diet Activity as Tolerated: Yes Discharge Physical Examination Vital Signs Vital Signs Date Time Temp Pulse Resp B/P (MAP) Pulse Ox O2 Delivery O2 Flow Rate FiO2 07/18/19 08:00 37.1 79 20 150/74 (99) 94 Room Air General Appearance: No Apparent Distress, Chronically ill Respiratory: Lungs Clear, Normal Breath Sounds, No Respiratory Distress Cardiovascular: Regular Rate, Rhythm, No Edema, No Murmur Gastrointestinal: Normal Bowel Sounds, Non Tender, Soft Extremity: Normal Inspection, Non Tender, No Pedal Edema Skin: Normal Color, Warm/Dry Neurologic/Psychiatric: Alert, Oriented x3, No Motor/Sensory Deficits, Normal Mood/Affect Allergies: Coded Allergies: iodine (Verified Allergy, Unknown, 07/27/18) povidone-iodine (Verified Allergy, Unknown, 07/27/18) soap (Verified Allergy, Unknown, 07/27/18) Copy Copies To 1: HE CHOW MD Discharge Summary Date of Admission Jul 16, 2019 at 17:26 Date of Discharge Discharge Date: Jul 18, 2019 Discharge Time: 10:26 Admission Diagnosis Acute respiratory failure with hypoxia Discharge Diagnosis Congestive heart failure (1) Heart failure Qualifiers: Qualified Codes: I50.9 - Heart failure, unspecified (2) Acute respiratory failure with hypoxia Status: Resolved (3) Elevated brain natriuretic peptide (BNP) level Status: Acute (4) Kidney transplant recipient Status: Chronic (5) 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
[2019-07-18 12:00] VITALS: BP 143/67
[2019-07-18 13:30] VITALS: BP 143/67
--- NOTE | 2019-07-18 13:47 | NUR ---
CM/SS: Visited with pt as to plan for discharge. Plan: Pt will return home, no services needed at this time Summary: Pt does not have transportation home, as he indicates his car is parked at the Emergency Room in [place]. Pt only has a ride that can pick him up on Tuesday. This worker explores with pt who can pick him up. He reports that the person does not have gas to get here. A gas voucher is offered. Also the taxi service is offered. Pt has agreed to pay a portion of the cost. Kaden from [employer] company contacted and the total cost is $82.00. She is also informed that pt will pay half of the cost of the transportation. Pt is informed and he is able to pay $41.00 and [employer] will assist with $41.00. Pt informed and pt signs the transportation request sheet. Pt will be returned to [place], via Cab at time of discharge.
--- NOTE | 2019-07-18 14:02 | NUR ---
STEPHANIA BUSTILLOS JR demonstrates understanding of discharge instructions and accurately returns instructions upon questioning. Copy of Post-Discharge Instructions given to PT. STEPHANIA BUSTILLOS JR is able to manage continuing needs after discharge. Patients belongings returned to PT. Patient discharged from 420-1 on 07/18/19 at 1330. STEPHANIA BUSTILLOS JR left floor via W/C, accompanied by STAFF AND [employer] PER [employer].
== END 2019-07-18 13:30 | disposition home or self-care (01) | DRG 291 ==
LOC: EDUNIT# 15:38 → ER FS 15:40 → 4TH 17:26
PROVIDERS: ADMIT Internal Medicine; ATTEND Internal Medicine
DX: I13.0 Hypertensive heart and chronic kidney disease with heart failure and stage 1 through stage 4 chronic kidney disease, or unspecified chronic kidney disease (principal); I50.9 Heart failure, unspecified; J96.01 Acute respiratory failure with hypoxia; Z94.0 Kidney transplant status; T45.1X5A Adverse effect of antineoplastic and immunosuppressive drugs, initial encounter; N18.9 Chronic kidney disease, unspecified; E11.9 Type 2 diabetes mellitus without complications; Z20.818 Contact with and (suspected) exposure to other bacterial communicable diseases; Z66 Do not resuscitate; Z79.84 Long term (current) use of oral hypoglycemic drugs; Z86.79 Personal history of other diseases of the circulatory system; Z87.891 Personal history of nicotine dependence; K57.90 Diverticulosis of intestine, part unspecified, without perforation or abscess without bleeding
CPT/HCPCS: 36415; 71045; 80048; 80053; 83605; 83735; 83880; 84145; 84484; 85025; 87040; 87430; 87635; 87804

== ENCOUNTER 2020-04-16 12:56 | Inpatient (IN) | payer MEDICARE ==
[2020-04-15 15:57] VITALS: BP 180/94
[~2020-04-16] VITALS: Ht 175.3 cm; Wt 76.4 kg
[2020-04-16] VITALS (8 sets, daily range): BP systolic 121–184; BP diastolic 76–112
[~2020-04-16 12:56] MED LIST changes: +AMLO-250 PO; +AMLO-251 PO; -AMLO10TA7 PO; -AMLO5TAB9 PO; +ASPI-1238 PO; -ASPI-983 PO; +AZAT50TA16 PO; +FISH1CAP15 PO; +MAGN250T13 PO; +MAGN400C PO; +MULT-567 PO
--- NOTE | 2020-04-16 13:25 | ED Respiratory ---
General Chief Complaint: Respiratory Problems Stated Complaint: SOB Nursing Triage Note: PT BROUGHT IN BY [facility] FROM HOME WITH COMPLAINT OF NOT FEELING WELL. PTS INITAL 02 AT HOME WAS 86% ON ROOM AIR. PT WAS GIVEN ALBUTEROL EN ROUTE BY EMS. PT WAS FOUND LAYING ON FLOOR BY FIRST RESPONDERS. UNKNOWN HOW LONG ON FLOOR. Source: patient, EMS Exam Limitations: clinical condition History of Present Illness Date Seen by Provider: Apr 16, 2020 Time Seen by Provider: 12:53 Initial Comments Patient presents to the ER by [facility] with chief complaint that he has been feeling short of breath and sick for the last 2 days. He called into work at the [employer] and when someone called to check on him today he did not answer. Fire had to break the door down because he had collapsed in front of the door. His oxygen sats were in the low 80s on room air. He does not require oxygen at baseline but does have a history of COPD and status post renal transplant. He denies any fevers or productive cough. He denies any sick contacts. He is not having any nausea or loss of sense of taste or smell. No diarrhea or constipation but poor fluid intake recently. He is diabetic and has a normal blood sugar per EMS. Primary care by Dr. Brooke. He does not follow with a oil tester anymore. He is still on azathioprine and tacrolimus. He used to be on hemodialysis with a shunt in his left forearm however he has not been on that for over 5 years. EMS was able to bring his oxygen sats to the upper 90s on 4 L by nasal cannula. They gave him a DuoNeb and he says this helped his breathing immensely. They heard diminished lung sounds. Allergies and Home Medications Allergies Coded Allergies: iodine (Verified Allergy, Unknown, 07/27/18) povidone-iodine (Verified Allergy, Unknown, 07/27/18) soap (Verified Allergy, Unknown, 07/27/18) Home Medications Amlodipine Besylate 5 Mg Tablet, 5 MG PO DAILY Prescribed by: REED SU on 07/18/19 1018 Aspirin 81 Mg Tablet., 81 MG PO DAILY, (Reported) Azathioprine 50 Mg Tablet, 100 MG PO HS, (Reported) TAKES 2 (50MH) TABS TO EQUAL 100MG Fish Oil/Dha/Epa 1 Each Capsule, 1 EACH PO HS, (Reported) Glimepiride 2 Mg Tablet, 2 MG PO BID, (Reported) Magnesium Oxide 400 Mg Capsule, 400 MG PO DAILY, (Reported) TAKES 400MG (FROM THE PHARMACY) AND 250MH (OTC) Magnesium Oxide 250 Mg Tablet, 250 MG PO DAILY, (Reported) TAKES 400MG (FROM THE PHARMACY) AND 250MH (OTC) Metformin HCl 1,000 Mg Tablet, 1,000 MG PO BID, (Reported) Multivitamin 1 Each Tablet, 1 EACH PO DAILY, (Reported) Tacrolimus 1 Mg Capsule, 1 MG PO BID, (Reported) Patient Home Medication List Home Medication List Reviewed: Yes Review of Systems Review of Systems Constitutional: No chills, No fever; malaise, weakness EENTM: No ear discharge, No ear pain Respiratory: No cough Cardiovascular: No chest pain, No Hx of Intervention, No palpitations Gastrointestinal: No abdominal pain, No constipation, No diarrhea, No nausea Genitourinary: No discharge, No dysuria Musculoskeletal: No back pain, No joint pain Immunological/Allergic: denies food allergy, denies grass allergy All Other Systems Reviewed Negative Unless Noted: Yes Past Qvmtiql-Lyxxxm-Sxjyfz Hx Patient Social History Alcohol Use: Denies Use Number of Drinks Today: AA Alcohol Beverage of Choice: Beer Recreational Drug Use: No Smoking Status: Former Smoker Former Smoker, Quit: Apr 18, 1994 2nd Hand Smoke Exposure: No Recent Foreign Travel: No Contact w/Someone Who Travel: No Recent Infectious Disease Expo: No Recent Hopitalizations: No Immunizations Up To Date Tetanus Booster (TDap): Unknown Date of Pneumonia Vaccine: Apr 18, 2014 Date of Influenza Vaccine: Mar 17, 2020 Seasonal Allergies Seasonal Allergies: No Past Medical History Surgeries: Yes (KIDNEY TRANSPLANT, AAA REPAIR, FISTULA PLACEMENT, RUPTURED L KIDNEY) Bowel Surgery, Kidney Transplant Respiratory: No Cardiac: Yes (R Carotid artery surgery, Triple AAA) Aneurysm, Hypertension Neurological: No Genitourinary: Yes (KIDNEY TRANSPLANT 2004) Renal Failure, Dialysis Gastrointestinal: Yes (BOWEL RESECTION FOR DIVERTICULITIS) Diverticulosis Musculoskeletal: No Endocrine: Yes Diabetes, Non-Insulin dep HEENT: No Cancer: No Psychosocial: No Integumentary: No Blood Disorders: No Adverse Reaction/Blood Tranf: No Physical Exam Vital Signs - First Documented 04/15/20 15:57 B/P (MAP) 180/94 (122) O2 Delivery Nasal Cannula Capillary Refill : Less Than 3 Seconds Height: 5'8.00" Weight: 154lbs. 0.0oz. 69.249049oi; 21.00 BMI Method:Stated General Appearance: other (Chronically ill, disheveled and moderate distress) Eyes: Bilateral Eye Normal Inspection, Bilateral Eye PERRL, Bilateral Eye EOMI HEENT: PERRL/EOMI, normal ENT inspection, TMs normal; No pharynx normal (Dry mucosa) Neck: full range of motion, normal inspection Respiratory: respiratory distress (Moderate with oxygen saturation of 82% on room air and increased work of breathing), decreased breath sounds, accessory muscle use (Moderate with respiratory rate in the upper 20s), wheezing (Bilateral) Cardiovascular: normal peripheral pulses, regular rate, rhythm Gastrointestinal: normal bowel sounds, non tender, soft Neurologic/Psychiatric: no motor/sensory deficits, alert, normal mood/affect, oriented x 3, other (GCS 14) Skin: normal color, warm/dry Focused Exam Lactate Level 04/16/20 13:05: Lactic Acid Level 1.62 Lactic Acid Level Laboratory Tests Test 04/16/20 13:05 Lactic Acid Level 1.62 MMOL/L (0.50-2.00) Progress/Results/Core Measures Suspected Sepsis Recent Fever Within 48 Hours: No Infection Criteria Present: None New/Unexplained Altered Menta: No Sepsis Screen: No Definite Risk SIRS Temperature: Pulse: 102 Respiratory Rate: 29 Laboratory Tests 04/16/20 13:05: White Blood Count 8.5 Blood Pressure 175 /79 Mean: 111 04/16/20 13:05: Lactic Acid Level 1.62 Laboratory Tests 04/16/20 13:05: Creatinine 2.29H, INR Comment 1.1, Platelet Count 287, Total Bilirubin 0.4 Results/Orders Lab Results Laboratory Tests Test 04/16/20 13:05 04/16/20 13:07 04/16/20 13:09 04/16/20 15:03 Range/Units White Blood Count 8.5 4.3-11.0 10^3/uL Red Blood Count 4.51 4.30-5.52 10^6/uL Hemoglobin 13.5 13.3-17.7 g/dL Hematocrit 43 40-54 % Mean Corpuscular Volume 94 80-99 fL Mean Corpuscular Hemoglobin 30 25-34 pg Mean Corpuscular Hemoglobin Concent 32 32-36 g/dL Red Cell Distribution Width 15.3 H 10.0-14.5 % Platelet Count 287 130-400 10^3/uL Mean Platelet Volume 10.2 9.0-12.2 fL Immature Granulocyte % (Auto) 1 % Neutrophils (%) (Auto) 88 H 42-75 % Lymphocytes (%) (Auto) 4 L 12-44 % Monocytes (%) (Auto) 6 0-12 % Eosinophils (%) (Auto) 0 0-10 % Basophils (%) (Auto) 0 0-10 % Neutrophils # (Auto) 7.5 1.8-7.8 10^3/uL Lymphocytes # (Auto) 0.4 L 1.0-4.0 10^3/uL Monocytes # (Auto) 0.6 0.0-1.0 10^3/uL Eosinophils # (Auto) 0.0 0.0-0.3 10^3/uL Basophils # (Auto) 0.0 0.0-0.1 10^3/uL Immature Granulocyte # (Auto) 0.1 0.0-0.1 10^3/uL Prothrombin Time 14.2 12.2-14.7 SEC INR Comment 1.1 0.8-1.4 Activated Partial Thromboplast Time 24 24-35 SEC Sodium Level 135 135-145 MMOL/L Potassium Level 5.4 H 3.6-5.0 MMOL/L Chloride Level 105 98-107 MMOL/L Carbon Dioxide Level 18 L 21-32 MMOL/L Anion Gap 12 5-14 MMOL/L Blood Urea Nitrogen 37 H 7-18 MG/DL Creatinine 2.29 H 0.60-1.30 MG/DL Estimat Glomerular Filtration Rate 28 BUN/Creatinine Ratio 16 Glucose Level 76 70-105 MG/DL Lactic Acid Level 1.62 0.50-2.00 MMOL/L Calcium Level 9.7 8.5-10.1 MG/DL Corrected Calcium 10.2 H 8.5-10.1 MG/DL Total Bilirubin 0.4 0.1-1.0 MG/DL Aspartate Amino Transf (AST/SGOT) 29 5-34 U/L Alanine Aminotransferase (ALT/SGPT) 17 0-55 U/L Alkaline Phosphatase 89 40-136 U/L Troponin I 0.049 H <0.028 NG/ML C-Reactive Protein High Sensitivity 0.93 H 0.00-0.50 MG/DL B-Type Natriuretic Peptide 902.2 H <100.0 PG/ML Total Protein 7.6 6.4-8.2 GM/DL Albumin 3.4 3.2-4.5 GM/DL Procalcitonin 0.06 <0.10 NG/ML Smear Scan YES Blood Gas Puncture Site RIGHT RADIAL Blood Gas Patient Temperature 97.3 Arterial Blood pH 7.34 *L 7.37-7.43 Arterial Blood Partial Pressure CO2 34 L 35-45 MMHG Arterial Blood Partial Pressure O2 66 L 79-93 MMHG Arterial Blood HCO3 18 L 23-27 MMOL/L Arterial Blood Total CO2 19.4 L 21.0-31.0 MMOL/L Arterial Blood Oxygen Saturation 91 L 94-100 % Arterial Blood Base Excess -6.4 L -2.5-2.5 MMOL/L Byron Test POSITIVE Blood Gas Ventilator Setting NO Blood Gas Inspired Oxygen 4 L Coronavirus 2019 (NITHYA) Negative Negative Urine Color YELLOW Urine Clarity SL CLOUDY Urine pH 5.5 5-9 Urine Specific [place] >=1.030 1.016-1.022 Urine Protein 3+ H NEGATIVE Urine Glucose (UA) NEGATIVE NEGATIVE Urine Ketones NEGATIVE NEGATIVE Urine Nitrite NEGATIVE NEGATIVE Urine Bilirubin NEGATIVE NEGATIVE Urine Urobilinogen 0.2 < = 1.0 MG/DL Urine Leukocyte Esterase NEGATIVE NEGATIVE Urine RBC (Auto) TRACE-I NEGATIVE Urine RBC 0-2 /HPF Urine WBC 0-2 /HPF Urine Squamous Epithelial Cells NONE /HPF Urine Crystals NONE /LPF Urine Bacteria TRACE /HPF Urine Casts NONE /LPF Urine Mucus MODERATE H /LPF Urine Culture Indicated CULTURE PENDING Test 04/16/20 15:20 Range/Units Micro Results Microbiology 04/16/20 Influenza Types A,B Antigen (MARILEE) - Final, Complete My Orders Orders - LISBETH RODRIGUEZ Cbc With Automated Diff (04/16/20 13:18) Comprehensive Metabolic Panel (04/16/20 13:18) Blood Culture (04/16/20 13:18) Sputum Culture (04/16/20 13:18) Urinalysis (04/16/20 13:18) Urine Culture (04/16/20 13:18) Protime With Inr (04/16/20 13:18) Partial Thromboplastin Time (04/16/20 13:18) Chest 1 View, Ap/Pa Only (04/16/20 13:18) Ed Iv/Invasive Line Start (04/16/20 13:18) Ed Iv/Invasive Line Start (04/16/20 13:18) Ekg Tracing (04/16/20 13:18) Troponin I (04/16/20 13:18) Vital Signs Adult Sepsis Patie Q15M (04/16/20 13:18) O2 (04/16/20 13:18) Remove Rings In Anticipation O (04/16/20 13:18) Lactic Acid Analyzer (04/16/20 13:18) Influenza A And B Antigens (04/16/20 13:18) Ns Iv 1000 Ml (Sodium Chloride 0.9%) (04/16/20 13:30) Cefepime Injection (Maxipime Injection) (04/16/20 13:30) Vancomycin Injection (Vancomycin Injecti (04/16/20 13:30) Ct Head/Cervical Spine Wo (04/16/20 13:18) Covid 19 Inhouse Test (04/16/20 13:18) Coronavirus Sars-Cov-2 So 2018 (04/16/20 13:18) Arterial Blood Gas (04/16/20 13:25) Dexamethasone Injection (Decadron Injec (04/16/20 13:30) Dexamethasone Injection (Decadron Injec (04/16/20 13:26) BNP (04/16/20 14:27) Ns Iv 1000 Ml (Sodium Chloride 0.9%) (04/16/20 14:30) Hs C Reactive Protein (04/16/20 14:29) Procalcitonin (Pct) (04/16/20 14:29) Dipht,Pertuss(Acell),Tet Adult (Boostrix (04/16/20 14:45) Catheter(Urinary) Insert & Ass 03,15 (04/16/20 14:48) Medications Given in ED Current Medications Medications Dose Ordered Sig/Rosanne Route Start Time Stop Time Status Last Admin Dose Admin Cefepime HCl 1000 mg/Sterile Water 10 ml @ 200 mls/hr ONCE ONCE IV 04/16/20 13:30 04/16/20 13:32 DC 04/16/20 13:32 200 MLS/HR Dexamethasone Sodium Phosphate 6 mg ONCE ONCE IV 04/16/20 13:30 04/16/20 13:31 DC 04/16/20 13:33 6 MG Diphtheria/ Tetanus/Acell Pertussis 0.5 ml ONCE ONCE IM 04/16/20 14:45 04/16/20 14:46 DC 04/16/20 14:54 0.5 ML Sodium Chloride 1,000 ml @ 1,000 mls/hr Q1H ONCE IV 04/16/20 14:30 04/16/20 15:29 DC 04/16/20 14:49 1,000 MLS/HR Vancomycin HCl 1000 mg/Sodium Chloride 250 ml @ 250 mls/hr ONCE ONCE IV 04/16/20 13:30 04/16/20 14:29 DC 04/16/20 13:32 250 MLS/HR Vital Signs/I&O 04/15/20 04/16/20 04/16/20 04/16/20 15:57 12:56 12:56 15:53 Temp 36.2 36.2 Pulse 102 102 Resp 29 29 B/P (MAP) 180/94 (122) 175/79 (111) 175/79 Pulse Ox 91 80 94 O2 Delivery Nasal Cannula Nasal Cannula Nasal Cannula Nasal Cannula O2 Flow Rate 4.00 4.00 4.00 Capillary Refill : Less Than 3 Seconds Blood Pressure Mean: 111 Progress Note : Time: 14:08 Progress Note ABG reveals metabolic acidosis related to moderate hypoxia. After his wheezing some more DuoNeb would probably be helpful. We gave him Decadron and broad- spectrum antibiotics including cefepime and vancomycin. His creatinine runs around 1-1.5 historically and his BUN is significantly elevated which probably also explains his marginal troponin bump. Troponin and BNP were initiated as he may have had a syncopal episode. CT of his head and C-spine were ordered as he has a small hemostatic laceration over his right eyebrow. ECG Initial ECG Impression Date: Apr 16, 2020 Initial ECG Impression Time: 13:17 Initial ECG Rate: 75 Initial ECG Rhythm: A Fib/Flutter Initial ECG Intervals: QT (452) Initial ECG Impression: Atrial Fibrillation Comment Atrial fibrillation without rapid ventricular response or clinically relevant ST change. Diagnostic Imaging Diagonstic Imaging: CT Plain Films/CT/US/NM/MRI: c-spine, head Comments [facility] [place], [place] NAME: STEPHANIA BUSTILLOS [facility] REC#: [id number] PT STATUS: REG ER : 1940 PHYSICIAN: LISBETH RODRIGUEZ MD ADMIT DATE: 04/16/20/ER Signed Date of Exam:04/16/20 CT HEAD/CERVICAL SPINE WO PROCEDURE: CT head and CT cervical spine without contrast. TECHNIQUE: Multiple contiguous axial images were obtained through the brain and cervical spine without the use of intravenous contrast. Sagittal and coronal reformations through the cervical spine were then performed. Auto Exposure Controls were utilized during the CT exam to meet ALARA standards for radiation dose reduction. INDICATION: Found down. Bruising over the eyes. Head and neck pain. COMPARISON: None. FINDINGS: CT HEAD: No large acute territorial ischemia, mass, or hemorrhage. 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 No midline shift or mass effect. Decreased attenuation is seen in the periventricular and subcortical white matter. The ventricles and cortical sulci are prominent. The basilar cisterns are patent and unremarkable. The calvarium is intact. The visualized paranasal sinuses are clear. CT CERVICAL SPINE: No acute fracture or dislocation is seen in the cervical spine. No focal osseous lesions. There is reversal of the normal lordotic curvature of the cervical spine centered at the C4 level. Vertebral body heights are well-maintained. The craniocervical junction is well-maintained. Dogl-zu-jdotqwyy degenerative changes are seen in the cervical spine with disc osteophyte complexes and uncovertebral arthropathy. Soft tissues of the neck are unremarkable. IMPRESSION: 1. No hemorrhage or focal intra-axial mass. No CT evidence of large acute territorial ischemia. 2. No acute fracture or dislocation in the cervical spine. 3. 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 4. Generalized parenchymal volume loss with chronic microvascular disease. Dictated by: Dictated on workstation # [id number] Dict: 04/16/20 1454 Trans: 04/16/20 1508 [id number] Interpreted by: AYO GONZALES DO Electronically signed by: AYO GONZALES DO 04/16/20 1508 Reviewed: Reviewed by Ok Diagonstic Imaging: Xray Plain Films/CT/US/NM/MRI: chest Comments [facility] [place], [place] NAME: CLEVELAND DIXON JR [facility] REC#: [id number] PT STATUS: REG ER : 09/06/1935 PHYSICIAN: LISBETH RODRIGUEZ MD ADMIT DATE: 04/16/20/ER Draft Date of Exam:04/16/20 KNEE, LEFT, 3 VIEWS INDICATION: Left knee pain. Time of exam 11:41 AM 3 views of the left knee were obtained. There is generalized demineralization. There is tricompartmental degenerative change with joint space narrowing and marginal spurring. There is chondrocalcinosis of the medial and lateral compartments. Benign calcification suprapatellar location are noted. There is no fracture, dislocation or effusion. IMPRESSION: Degenerative changes. No acute bony abnormality is detected. Dictated on workstation # [id number] Dict: 04/16/20 1235 Trans: 04/16/20 1245 [facility] [id number] Interpreted by: COMFORT THAKUR MD Electronically signed by: Reviewed: Reviewed by Me Departure Communication (Admissions) Time/Spoke to Admitting Phy: 16:00 Discussed the case with Dr. Haro and she agrees to admit the patient to the [facility] on oxygen broad-spectrum antibiotics and Tamiflu. She would like a consult with Dr. Tavares because of the syncope and collapse. Discussed the new onset atrial fibrillation. Time/Spoke to Consulting Phy: 16:10 Discussed the case with Dr. Tavares, cardiology and he recommends Eliquis 2.5 mg twice daily based on creatinine however if we suspect he has a pulmonary embolism we should double it to 5 mg twice daily. He is happy to consult and would recommend consultation with Dr. Wesley, pulmonology. D-dimer added. Impression Primary Impression: Acute respiratory failure with hypoxia Additional Impressions: Laceration of forehead without complication Qualified Codes: S01.81XA - Laceration without foreign body of other part of head, initial encounter Influenza B Person under investigation for COVID-19 Syncope and collapse Atrial fibrillation by electrocardiogram Immunosuppression due to drug therapy Disposition: ADMITTED INPATIENT Condition: Stable Admissions Decision to Admit Reason: Admit from ER (General) Decision to Admit/Date: Apr 16, 2020 Time/Decision to Admit Time: 14:00 Departure-Patient Inst. Referrals: HE BROOKE MD (PCP/Family) Primary Care Physician LISBETH RODRIGUEZ Apr 16, 2020 13:25
[2020-04-16] MEDS ORDERED: CEFEPIME INJECTION 1,000 MG in WATER (STERILE) FOR INJECTION 10 ML IV ONE (13:30)
[2020-04-16] MEDS ORDERED: NS IV 1000 ML 1,000 ML IV SCH (13:30)
[2020-04-16] MEDS ORDERED: VANCOMYCIN INJECTION 1,000 MG in NS (IVPB) 250 ML IV ONE (13:30)
[2020-04-16 13:37] LABS: ALBUMIN 3.4 GM/DL (3.2-4.5); POTASSIUM 5.4 MMOL/L (3.6-5.0)
[2020-04-16 13:38] LABS: BASOPHILS % (AUTO) 0 % (0-10); CALCIUM 9.7 MG/DL (8.5-10.1); EOSINOPHILS % (AUTO) 0 % (0-10); HEMATOCRIT 43 % (40-54); HEMOGLOBIN 13.5 g/dL (13.3-17.7); LYMPHOCYTES # (AUTO) 0.4 10^3/uL (1.0-4.0); LYMPHOCYTES % (AUTO) 4 % (12-44); MEAN CORPUSCULAR HEMOGLOBIN 30 pg (25-34); MEAN CORPUSCULAR HGB CONC 32 g/dL (32-36); MEAN CORPUSCULAR VOLUME 94 fL (80-99); MEAN PLATELET VOLUME 10.2 fL (9.0-12.2); MONOCYTES # (AUTO) 0.6 10^3/uL (0.0-1.0); MONOCYTES % (AUTO) 6 % (0-12); NEUTROPHILS # (AUTO) 7.5 10^3/uL (1.8-7.8); NEUTROPHILS % (AUTO) 88 % (42-75); PLATELET COUNT 287 10^3/uL (130-400); WHITE BLOOD COUNT 8.5 10^3/uL (4.3-11.0)
[2020-04-16 13:40] LABS: TOTAL PROTEIN 7.6 GM/DL (6.4-8.2)
[2020-04-16 13:42] LABS: BILIRUBIN,TOTAL 0.4 MG/DL (0.1-1.0)
[2020-04-16 13:43] LABS: CREATININE SERUM 2.29 MG/DL (0.60-1.30); INR 1.1 (0.8-1.4); PROTHROMBIN TIME PATIENT 14.2 SEC (12.2-14.7)
[2020-04-16 13:47] LABS: SMEAR SCAN COMMENT YES
[2020-04-16 13:51] LABS: ABG BASE EXCESS -6.4 MMOL/L (-2.5-2.5); ABG OXYGEN SATURATION 91 % (94-100); ABG PCO2 34 MMHG (35-45); ABG PO2 66 MMHG (79-93); ABG TCO2 19.4 MMOL/L (21.0-31.0)
[2020-04-16 13:52] LABS: ABG PH 7.34 (7.37-7.43); ALLENS TEST POSITIVE; INSPIRED O2 4 L; PATIENT TEMP 97.3; VENTILATOR NO
--- NOTE | 2020-04-16 14:26 | Diagnostic Imaging Report ---
INDICATION: Sepsis. TIME OF EXAM: 02:05 p.m. COMPARISON: Correlation is made with prior chest from 07/18/2019. FINDINGS: Heart size is stable. Patient has developed a [id number]-dw-[id number] right pleural effusion. No left-sided pleural fluid is identified. There is some compressive atelectasis in right base. No pneumothorax is seen. IMPRESSION: Development of lhqycape-av-npsli right pleural effusion. Dictated by: Dictated on workstation # [id number]
[2020-04-16] MEDS ORDERED: NS IV 1000 ML 1,000 ML IV ONE (14:30)
[2020-04-16] MEDS ORDERED: TETANUS,DIPTH,PERTUSS P/F (BOOSTRIX) 0.5 ML VIAL IM ONE (14:45)
--- NOTE | 2020-04-16 14:59 | Diagnostic Imaging Report ---
PROCEDURE: CT head and CT cervical spine without contrast. TECHNIQUE: Multiple contiguous axial images were obtained through the brain and cervical spine without the use of intravenous contrast. Sagittal and coronal reformations through the cervical spine were then performed. Auto Exposure Controls were utilized during the CT exam to meet ALARA standards for radiation dose reduction. INDICATION: Found down. Bruising over the eyes. Head and neck pain. COMPARISON: None. FINDINGS: CT HEAD: No large acute territorial ischemia, mass, or hemorrhage. 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 No midline shift or mass effect. Decreased attenuation is seen in the periventricular and subcortical white matter. The ventricles and cortical sulci are prominent. The basilar cisterns are patent and unremarkable. The calvarium is intact. The visualized paranasal sinuses are clear. CT CERVICAL SPINE: No acute fracture or dislocation is seen in the cervical spine. No focal osseous lesions. There is reversal of the normal lordotic curvature of the cervical spine centered at the C4 level. Vertebral body heights are well-maintained. The craniocervical junction is well-maintained. Gpzo-sz-yeetyxlu degenerative changes are seen in the cervical spine with disc osteophyte complexes and uncovertebral arthropathy. Soft tissues of the neck are unremarkable. IMPRESSION: 1. No hemorrhage or focal intra-axial mass. No CT evidence of large acute territorial ischemia. 2. No acute fracture or dislocation in the cervical spine. 3. 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 4. Generalized parenchymal volume loss with chronic microvascular disease. Dictated by: Dictated on workstation # [id number]
[2020-04-16 15:34] LABS: BILIRUBIN,URINE NEGATIVE (NEGATIVE); COLOR,URINE YELLOW; GLUCOSE, URINE (UA) NEGATIVE (NEGATIVE); KETONES,URINE NEGATIVE (NEGATIVE); LEUKOCYTE ESTERASE ,URINE NEGATIVE (NEGATIVE); NITRITE,URINE NEGATIVE (NEGATIVE); PH,URINE 5.5 (5-9); PROTEIN,URINE 3+ (NEGATIVE)
[2020-04-16 15:39] LABS: CLARITY,URINE SL CLOUDY
[2020-04-16 15:41] LABS: BACTERIA,URINE TRACE /HPF; RBC,URINE 0-2 /HPF; WBC,URINE 0-2 /HPF
[2020-04-16] MEDS ORDERED: ACETAMINOPHEN 325 MG TABLET PO PRN (17:15)
[2020-04-16] MEDS ORDERED: ONDANSETRON 4 MG/2 ML (SDV) Z0FRAN IV PRN (17:15)
[2020-04-16] MEDS ORDERED: ENOXAPARIN 100 MG/1 ML (LOVENOX) SYR SC SCH (17:30)
[2020-04-16] MEDS ORDERED: ENOXAPARIN 80 MG/0.8 ML (LOVENOX) SYR SC SCH (17:45)
[2020-04-16] MEDS: NS IV 1000 ML 1,000 ML IV SCH (17:58)
[2020-04-16] MEDS: OSELTAMIVIR 30 MG (TAMIFLU) CAPSULE PO SCH (17:58)
--- NOTE | 2020-04-16 19:20 | Consultation-Cardiology ---
HPI-Cardiology Cardiology Consultation: Date of Consultation 04/16/20 Time Seen by a Provider: 18:00 Date of Admission Attending Physician Edwina Haro MD Admitting Physician Mike Chow MD Consulting Physician DANIELLA VILLANUEVA MD, MA, FACP, FACC, FSCAI, CCDS Physician requesting consult: Dr Haro HPI: Chief Complaint: CC: Shortness of breath HPI 80 yo man admitted to Dr Haro through the ER after he presented to the ER by [facility] with chief complaint that he has been feeling short of breath and sick for the last 2 days. He had called in sick to work and was then not answering phone calls. EMS went to his house and had to break down the door because he was not able to open the door fro them. His oxygen sats were in the low 80s on room air. He has a h/o COPD. He denies any fevers or productive cough. He denies any sick contacts. He is not having any nausea or loss of sense of taste or smell. Reports poor oral intake recently. Reports gen malaise and weakness Review of Systems-Cardiology Review of Systems Constitutional: As described under HPI Eyes: No vision change Ears/Nose/Throat: No ear discharge, No nasal drainage, No recent hearing loss Respiratory: As described under HPI Cardiovascular: As described under HPI Gastrointestinal: As described under HPI Genitourinary: dysuria, hematuria, urine frequency changes Musculoskeletal: No joint pain Skin: No rash, No ulcerations Psychiatric/Neurological: No seizure, No focal weakness, No syncope Hematologic: No bleeding abnormalities All Other Systems Reviewed Negative Unless Noted: Yes ZHD-Djfnhm-Cxpfax Hx Patient Social History Alcohol Use: Denies Use Recreational Drug Use: No Smoking Status: Former Smoker 2nd Hand Smoke Exposure: No Recent Foreign Travel: No Recent Infectious Disease Expo: No Hospitalization with Isolation: Denies Immunizations Up To Date Tetanus Booster (TDap): Unknown Date of Pneumonia Vaccine: Apr 18, 2014 Date of Influenza Vaccine: Mar 17, 2020 Past Medical History PMH As described under Assessment. Family Medical History Family Medical History: Does not report fam h/o early CAD Allergies and Home Medications Allergies Coded Allergies: Penicillins (Verified Allergy, Unknown, 04/16/20) iodine (Verified Allergy, Unknown, 07/27/18) povidone-iodine (Verified Allergy, Unknown, 07/27/18) soap (Verified Allergy, Unknown, 07/27/18) Home Medications Amlodipine Besylate 5 Mg Tablet, 5 MG PO DAILY Prescribed by: REED SU on 07/18/19 1018 Aspirin 81 Mg Tablet.dr, 81 MG PO DAILY, (Reported) Azathioprine 50 Mg Tablet, 100 MG PO HS, (Reported) TAKES 2 (50MH) TABS TO EQUAL 100MG Fish Oil/Dha/Epa 1 Each Capsule, 1 EACH PO HS, (Reported) Glimepiride 2 Mg Tablet, 2 MG PO BID, (Reported) Magnesium Oxide 400 Mg Capsule, 400 MG PO DAILY, (Reported) TAKES 400MG (FROM THE PHARMACY) AND 250MH (OTC) Magnesium Oxide 250 Mg Tablet, 250 MG PO DAILY, (Reported) TAKES 400MG (FROM THE PHARMACY) AND 250MH (OTC) Metformin HCl 1,000 Mg Tablet, 1,000 MG PO BID, (Reported) Multivitamin 1 Each Tablet, 1 EACH PO DAILY, (Reported) Tacrolimus 1 Mg Capsule, 1 MG PO BID, (Reported) Patient Home Medication List Home Medication List Reviewed: Yes Physical Exam-Cardiology Physical Exam Vital Signs/I&O 04/16/20 04/16/20 04/16/20 04/16/20 12:56 12:56 15:45 15:45 Temp 36.2 Pulse 102 Resp 29 B/P (MAP) 175/79 (111) Pulse Ox 91 80 96 O2 Delivery Nasal Cannula Nasal Cannula Nasal Cannula Nasal Cannula O2 Flow Rate 4.00 4.00 4.00 04/16/20 04/16/20 04/16/20 04/16/20 15:53 16:00 16:05 16:35 Temp 36.2 Pulse 102 93 84 92 Resp 29 13 24 B/P (MAP) 175/79 138/100 (113) 178/88 Pulse Ox 94 93 96 O2 Delivery Nasal Cannula Nasal Cannula O2 Flow Rate 4.00 5.00 4.00 04/16/20 04/16/20 17:00 18:00 Pulse 79 9 Resp 13 13 B/P (MAP) 167/76 (106) 164/78 (106) Pulse Ox 93 94 O2 Delivery Nasal Cannula Nasal Cannula O2 Flow Rate 5.00 5.00 Capillary Refill : Less Than 3 Seconds Constitutional: AAO x 3, well-developed, well-nourished HEENT: EOMI, hearing is well preserved; No xanthelasmas are seen Neck: carotid pulses are 2 + bilaterally, with good upstrokes Respiratory: No accessory muscle use; other (fair to good air entry, diminished at the bases) Cardiovascular: regular rate-rhythm, S1 and S2, systolic murmur (soft SWATI at card base) Gastrointestinal: No tender; soft; No guarding, No rebound; audible bowel sounds Extremities: No clubbing, No cyanosis, No significant edema Neurologic/Psychiatric: oriented x 3, other (moves all limbs equally) Skin: No rash on exposed areas, No ulcerations on exposed areas Data Review Labs Laboratory Tests 04/16/20 13:05: White Blood Count 8.5, Red Blood Count 4.51, Hemoglobin 13.5, Hematocrit 43, Mean Corpuscular Volume 94, Mean Corpuscular Hemoglobin 30, Mean Corpuscular Hemoglobin Concent 32, Red Cell Distribution Width 15.3H, Platelet Count 287, Mean Platelet Volume 10.2, Immature Granulocyte % (Auto) 1, Neutrophils (%) (Auto) 88H, Lymphocytes (%) (Auto) 4L, Monocytes (%) (Auto) 6, Eosinophils (%) (Auto) 0, Basophils (%) (Auto) 0, Neutrophils # (Auto) 7.5, Lymphocytes # (Auto) 0.4L, Monocytes # (Auto) 0.6, Eosinophils # (Auto) 0.0, Basophils # (Auto) 0.0, Immature Granulocyte # (Auto) 0.1, Prothrombin Time 14.2, INR Comment 1.1, Activated Partial Thromboplast Time 24, D-Dimer > 20.00*H, Sodium Level 135, Potassium Level 5.4H, Chloride Level 105, Carbon Dioxide Level 18L, Anion Gap 12, Blood Urea Nitrogen 37H, Creatinine 2.29H, Estimat Glomerular Filtration Rate 28, BUN/Creatinine Ratio 16, Glucose Level 76, Lactic Acid Level 1.62, Calcium Level 9.7, Corrected Calcium 10.2H, Total Bilirubin 0.4, Aspartate Amino Transf (AST/SGOT) 29, Alanine Aminotransferase (ALT/SGPT) 17, Alkaline Phosphatase 89, Total Creatine Kinase 109, Troponin I 0.049H, C-Reactive Protein High Sensitivity 0.93H, B-Type Natriuretic Peptide 902.2H, Total Protein 7.6, Albumin 3.4, Procalcitonin 0.06, Smear Scan YES 04/16/20 13:07: Blood Gas Puncture Site RIGHT RADIAL, Blood Gas Patient Temperature 97.3, Arterial Blood pH 7.34*L, Arterial Blood Partial Pressure CO2 34L, Arterial Blood Partial Pressure O2 66L, Arterial Blood HCO3 18L, Arterial Blood Total CO2 19.4L, Arterial Blood Oxygen Saturation 91L, Arterial Blood Base Excess -6.4L, Byron Test POSITIVE, Blood Gas Ventilator Setting NO, Blood Gas Inspired Oxygen 4 L 04/16/20 13:09: Coronavirus 2019 (NITHYA) Negative 04/16/20 15:03: Urine Color YELLOW, Urine Clarity SL CLOUDY, Urine pH 5.5, Urine Specific [place] >=1.030, Urine Protein 3+H, Urine Glucose (UA) NEGATIVE, Urine Ketones NEGATIVE, Urine Nitrite NEGATIVE, Urine Bilirubin NEGATIVE, Urine Urobilinogen 0.2, Urine Leukocyte Esterase NEGATIVE, Urine RBC (Auto) TRACE-I, Urine RBC 0-2, Urine WBC 0-2, Urine Squamous Epithelial Cells NONE, Urine Crystals NONE, Urine Bacteria TRACE, Urine Casts NONE, Urine Mucus MODERATEH, Urine Culture Indicated CULTURE PENDING 04/16/20 15:20: Microbiology 04/16/20 Influenza Types A,B Antigen (MARILEE) - Final, Complete Laboratory Tests 04/16/20 13:05 A/P-Cardiology Assessment/Admission Diagnosis Ac resp failure of undetermined etiology Influenza B Gen weakness A Fib with controlled vent response (first diagnosed on 04/16/20) Cannot exclude PE S/p renal transplant in or around 2014 (on immunosuppression) Discussion and Recomendations * Echo * We recommend full anticoag unless any contraindications * Monitor labs * I discussed his case on the phone with Dr Haro Clinical Quality Measures DVT/VTE Risk/Contraindication: Risk Factor Score Per Nursin RFS Level Per Nursing on Admit: 4+=Very High DANIELLA VILLANUEVA MD [facility] CCDS Apr 16, 2020 19:20
[2020-04-16] MEDS: inSUlin ASPART (NovoLOG) 1 UNIT/0.01 ML (CHARGE PER UNIT) SC SCH (20:36)
[2020-04-16] MEDS ORDERED: APIXABAN 2.5 MG (ELIQUIS) TABLET PO SCH (21:00)
--- NOTE | 2020-04-16 23:00 | NUR ---
[place] patient yelling out. In room to check on patient. Noted monitor leads off, BP cuff off, saeed catheter tube tamer off and on the floor, gown off, and IV laying in bed with tip intact. Patient cleaned up and IV restarted. Pain med given for complaints of groin pain. Water provided and placed nearer to patient. Reminded patient to use call light and not to try to get up without assistance. Voiced understanding.
[2020-04-16] MEDS: fentaNYL INJECTION 100 MCG/2 ML AMP IV PRN (23:19)
[2020-04-17] VITALS (16 sets, daily range): BP systolic 132–200; BP diastolic 70–112
[2020-04-17] MEDS: NS IV 1000 ML 1,000 ML IV SCH (02:20)
[2020-04-17] MEDS: CEFEPIME 1,000 MG/SWFI 10 ML IV PUSH IV SCH ×4 (02:20→12:41)
[2020-04-17] MEDS: fentaNYL INJECTION 100 MCG/2 ML AMP IV PRN (02:30)
[2020-04-17 02:54] LABS: ABG BASE EXCESS -10.6 MMOL/L (-2.5-2.5); ABG OXYGEN SATURATION 97 % (94-100); ABG PCO2 40 MMHG (35-45); ABG PO2 101 MMHG (79-93); ABG TCO2 17.1 MMOL/L (21.0-31.0)
[2020-04-17 03:12] LABS: ABG PH 7.22 (7.37-7.43)
[2020-04-17 03:13] LABS: ALLENS TEST POS; PATIENT TEMP 96.9; VENTILATOR NO
--- NOTE | 2020-04-17 03:15 | NUR ---
Attempt call E-ICU with critical ABG results. Will call back as physician was currently busy.
--- NOTE | 2020-04-17 03:24 | NUR ---
Dr. Christine with E-ICU called and provided ABG critical results. Discussed patient's PMHX. Will put in orders for bicarb drip.
[2020-04-17] MEDS ORDERED: SODIUM BICARBONATE 8.4% VIAL 100 MEQ in 1/2 NS IV SOLUTION 1,000 ML IV SCH (03:30)
[2020-04-17 04:28] LABS: BASOPHILS % (AUTO) 0 % (0-10); EOSINOPHILS % (AUTO) 0 % (0-10); HEMATOCRIT 36 % (40-54); HEMOGLOBIN 10.9 g/dL (13.3-17.7); LYMPHOCYTES # (AUTO) 0.3 10^3/uL (1.0-4.0); LYMPHOCYTES % (AUTO) 3 % (12-44); MEAN CORPUSCULAR HEMOGLOBIN 30 pg (25-34); MEAN CORPUSCULAR HGB CONC 30 g/dL (32-36); MEAN CORPUSCULAR VOLUME 97 fL (80-99); MEAN PLATELET VOLUME 9.7 fL (9.0-12.2); MONOCYTES # (AUTO) 0.5 10^3/uL (0.0-1.0); MONOCYTES % (AUTO) 6 % (0-12); NEUTROPHILS # (AUTO) 7.8 10^3/uL (1.8-7.8); NEUTROPHILS % (AUTO) 91 % (42-75); PLATELET COUNT 406 10^3/uL (130-400); WHITE BLOOD COUNT 8.6 10^3/uL (4.3-11.0)
[2020-04-17 05:10] LABS: CALCIUM 8.7 MG/DL (8.5-10.1); CREATININE SERUM 2.3 MG/DL (0.60-1.30); MAGNESIUM 2.3 MG/DL (1.6-2.4); PHOSPHORUS 6.9 MG/DL (2.3-4.7); POTASSIUM 5.6 MMOL/L (3.6-5.0)
[2020-04-17 05:18] LABS: LYMPHOCYTES % (MANUAL) 3 %; MONOCYTES % (MANUAL) 5 %; NEUTROPHILS % (MANUAL) 92 %; RBC MORPH NORMAL
[2020-04-17] MEDS: inSUlin ASPART (NovoLOG) 1 UNIT/0.01 ML (CHARGE PER UNIT) SC SCH ×3 (05:24→18:05)
--- NOTE | 2020-04-17 05:38 | Pulmonary Consultation ---
History of Present Illness History of Present Illness Date Seen by Provider: Apr 17, 2020 Time Seen by Provider: 05:33 Date of Admission Allergies and Home Medications Allergies Coded Allergies: Penicillins (Verified Allergy, Unknown, 04/16/20) iodine (Verified Allergy, Unknown, 07/27/18) povidone-iodine (Verified Allergy, Unknown, 07/27/18) soap (Verified Allergy, Unknown, 07/27/18) Home Medications Amlodipine Besylate 5 Mg Tablet, 5 MG PO DAILY Prescribed by: REED SU on 07/18/19 1018 Aspirin 81 Mg Tablet.dr, 81 MG PO DAILY, (Reported) Azathioprine 50 Mg Tablet, 100 MG PO HS, (Reported) TAKES 2 (50MH) TABS TO EQUAL 100MG Fish Oil/Dha/Epa 1 Each Capsule, 1 EACH PO HS, (Reported) Glimepiride 2 Mg Tablet, 2 MG PO BID, (Reported) Magnesium Oxide 400 Mg Capsule, 400 MG PO DAILY, (Reported) TAKES 400MG (FROM THE PHARMACY) AND 250MH (OTC) Magnesium Oxide 250 Mg Tablet, 250 MG PO DAILY, (Reported) TAKES 400MG (FROM THE PHARMACY) AND 250MH (OTC) Metformin HCl 1,000 Mg Tablet, 1,000 MG PO BID, (Reported) Multivitamin 1 Each Tablet, 1 EACH PO DAILY, (Reported) Tacrolimus 1 Mg Capsule, 1 MG PO BID, (Reported) Past Guzfnsj-Pnhrpn-[place]i Hx Patient Social History Alcohol Use: Denies Use Number of Drinks Today: AA Alcohol Beverage of Choice: Beer Recreational Drug Use: No Smoking Status: Former Smoker Former Smoker, Quit: Apr 18, 1994 2nd Hand Smoke Exposure: No Recent Foreign Travel: No Contact w/Someone Who Travel: No Recent Infectious Disease Expo: No Recent Hopitalizations: No Immunizations Up To Date Tetanus Booster (TDap): Unknown Date of Pneumonia Vaccine: Apr 18, 2014 Date of Influenza Vaccine: Mar 17, 2020 Seasonal Allergies Seasonal Allergies: No Past Medical History Surgeries: Yes (KIDNEY TRANSPLANT, AAA REPAIR, FISTULA PLACEMENT, RUPTURED L KIDNEY) Bowel Surgery, Kidney Transplant Respiratory: No Cardiac: Yes (R Carotid artery surgery, Triple AAA) Aneurysm, Hypertension Neurological: No Genitourinary: Yes (KIDNEY TRANSPLANT 2004) Renal Failure, Dialysis Gastrointestinal: Yes (BOWEL RESECTION FOR DIVERTICULITIS) Diverticulosis Musculoskeletal: No Endocrine: Yes Diabetes, Non-Insulin dep HEENT: No Cancer: No Psychosocial: No Integumentary: No Blood Disorders: No Adverse Reaction/Blood Tranf: No Review of Systems Time Seen by Provider: 05:33 Sepsis Event Evaluation Height, Weight, BMI Height: 5'8.00" Weight: 154lbs. 0.0oz. 69.656921kt; 21.99 BMI Method:Stated Exam Exam Vital Signs Date Time Temp Pulse Resp B/P (MAP) Pulse Ox O2 Delivery O2 Flow Rate FiO2 04/17/20 04:10 5.00 04/17/20 02:53 36.1 Nasal Cannula 5.00 04/17/20 01:00 97 04/17/20 00:19 5.00 04/16/20 23:36 35.9 04/16/20 23:19 36.8 04/16/20 23:00 121 16 150/112 (125) 92 Nasal Cannula 5.00 04/16/20 22:00 99 15 121/87 (98) 95 Nasal Cannula 5.00 04/16/20 21:00 Nasal Cannula 5.00 04/16/20 21:00 76 12 184/84 (117) 96 Nasal Cannula 5.00 04/16/20 20:34 36.6 04/16/20 20:05 94 Nasal Cannula 5.00 04/16/20 20:00 81 12 176/85 (115) 97 Nasal Cannula 5.00 04/16/20 19:59 94 Nasal Cannula 5.00 04/16/20 19:00 82 12 92 Nasal Cannula 5.00 04/16/20 19:00 82 04/16/20 18:00 9 13 164/78 (106) 94 Nasal Cannula 5.00 04/16/20 17:00 79 13 167/76 (106) 93 Nasal Cannula 5.00 04/16/20 16:35 92 24 178/88 96 04/16/20 16:05 84 04/16/20 16:00 93 13 138/100 (113) 93 Nasal Cannula 5.00 04/16/20 15:53 36.2 102 29 175/79 94 Nasal Cannula 4.00 4.00 04/16/20 15:45 96 Nasal Cannula 4.00 04/16/20 15:45 Nasal Cannula 4.00 04/16/20 12:56 80 Nasal Cannula 04/16/20 12:56 36.2 102 29 175/57 (801) 11 Nasal Cannula 4.00 I & O 04/17/20 07:00 Intake Total 2395.0 ml Output Total 1075 ml Balance 1320.0 ml Height & Weight Height: 5'8.00" Weight: 154lbs. 0.0oz. 69.750474mu; 21.99 BMI Method:Stated Capillary Refill: Less Than 3 Seconds Gastrointestinal: normal bowel sounds, non tender, soft Results Lab Laboratory Tests 04/16/20 13:05 04/17/20 03:05 Assessment/Plan Assessment/Plan Acute respiratory failure/distress r/o PE -Ddimer > 20 -Check bilateral dopplers -COVID is negative -Currently on theraputic lovenox Loculated right pleural effusion -Check CT of chest without contrast r/o empyema Influenza B r/o sepsis -tamiflu -Currently on Vanco and maxapime Right pleural effusion -PCT is normal Found on floor unwitnessed fall Afib -Cardiology folllowing acute on Chronic renal failure with hyperkalemia and metabolic acidosis -Monitor -Hx of HD pt has left fistula for HD -Bicarb gtt started per EICU Hyperkalemia -Give insulin 10units -Amp D50 -Bicarb gtt -repeat labs at 1300 Hx of renal transplantation -Rejection meds restarted JUAN DANIEL GONZALES DO Apr 17, 2020 05:38
[2020-04-17] MEDS ORDERED: SOD POLYSTERENE 15 GM/60 ML (KAYEXALATE) UNIT DOSE PO ONE (05:45)
[2020-04-17] MEDS ORDERED: inSUlin (REGULAR) HUMAN 1 UNIT/0.01 ML (CHARGE PER UNIT) IV ONE (05:45)
[2020-04-17] MEDS ORDERED: DEXTROSE 50% 50 ML (IMS) SYR IV ONE (05:45)
[2020-04-17 07:02] LABS: BILIRUBIN,URINE NEGATIVE (NEGATIVE); CLARITY,URINE SL CLOUDY; COLOR,URINE YELLOW; GLUCOSE, URINE (UA) NEGATIVE (NEGATIVE); KETONES,URINE TRACE (NEGATIVE); LEUKOCYTE ESTERASE ,URINE NEGATIVE (NEGATIVE); NITRITE,URINE NEGATIVE (NEGATIVE); PROTEIN,URINE 3+ (NEGATIVE)
[2020-04-17 07:19] LABS: BACTERIA,URINE NEGATIVE /HPF
[2020-04-17 07:20] LABS: AMORPHOUS SEDIMENT,UR FEW AMOR URATES /LPF
--- NOTE | 2020-04-17 07:50 | Diagnostic Imaging Report ---
INDICATION: Pleural effusion COMPARISON: 04/16/2020 FINDINGS: Single view chest demonstrates stable cardiac enlargement with central vascular congestion and infiltrate. There is a stable right-sided effusion. There is no pneumothorax. IMPRESSION: Unchanged aeration lungs. Dictated by: Dictated on workstation # [id number]
--- NOTE | 2020-04-17 08:28 | History & Physical-Hospitalist ---
History of Present Illness Date Seen 04/17/20 Attending Physician Diomedes Haro MD PCP Mike Chow MD Referring Physician Date of Admission Apr 16, 2020 at 14:30 Home Medications & Allergies Home Medications Reviewed patient Home Medication Reconciliation performed by pharmacy medication reconciliations avionics systems technician and/or nursing. Patients Allergies have been reviewed. Allergies Allergies Coded Allergies Penicillins (Verified Allergy, Unknown, 04/16/20) iodine (Verified Allergy, Unknown, 07/27/18) povidone-iodine (Verified Allergy, Unknown, 07/27/18) soap (Verified Allergy, Unknown, 07/27/18) Past Aljhyxa-Sjgqcl-Eixcfc Hx Patient Social History Alcohol Use: Denies Use Alcohol Beverage of Choice: Beer Recreational Drug Use: No Smoking Status: Former Smoker Former Smoker, Quit: Apr 18, 1994 2nd Hand Smoke Exposure: No Recent Foreign Travel: No Contact w/other who traveled: No Recent Hopitalizations: No Recent Infectious Disease Expo: No Immunizations Up To Date Tetanus Booster (TDap): Unknown Date of Pneumonia Vaccine: Apr 18, 2014 Date of Influenza Vaccine: Mar 17, 2020 Seasonal Allergies Seasonal Allergies: No Past Medical History Surgeries: Bowel Surgery, Kidney Transplant Cardiac: Aneurysm, Hypertension Genitourinary: Renal Failure, Dialysis Gastrointestinal: Diverticulosis Endocrine: Diabetes, Non-Insulin dep History of Blood Disorders: No Adverse Reaction to Blood Kyle: No Physical Exam Physical Exam Vital Signs Vital Signs - First Documented 04/15/20 15:57 B/P (MAP) 180/94 (122) O2 Delivery Nasal Cannula Capillary Refill : Less Than 3 Seconds Height, Weight, BMI Height: 5'8.00" Weight: 154lbs. 0.0oz. 69.292226sc; 21.99 BMI Method:Stated Results Results/Procedures Labs Laboratory Tests 04/16/20 13:05 04/17/20 03:05 04/17/20 13:25 Patient resulted labs reviewed. Clinical Quality Measures DVT/VTE Risk/Contraindication: Risk Factor Score Per Nursin RFS Level Per Nursing on Admit: 4+=Very High DIOMEDES HARO MD Apr 17, 2020 08:28
[2020-04-17] MEDS ORDERED: TACROLIMUS 0.5 MG (PROGRAF) CAP NON-FORMULARY PO SCH (09:00)
[2020-04-17] MEDS ORDERED: HEParin 1000 UNIT/ML (10ML VIAL) FOR BOLUS IV SCH (09:30)
[2020-04-17] MEDS ORDERED: HEParin DRIP 25000 UNIT/500ML 500 ML IV SCH (09:30)
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
--- NOTE | 2020-04-17 09:52 | Diagnostic Imaging Report ---
PROCEDURE: US Venous Lower Ext [place]. TECHNIQUE: Multiple real-time grayscale images were obtained over the lower extremities in various projections, bilaterally. Additional duplex Doppler and color Doppler images were also obtained. INDICATION: Lower extremity swelling. There is no evidence of right or left lower extremity DVT. Both lower extremity deep venous systems demonstrate normal compressibility with normal response to augmentation and Valsalva. No fluid collection or mass is detected. IMPRESSION: No evidence of right or left lower extremity DVT. Dictated by: Dictated on workstation # [id number]
[2020-04-17] MEDS: SODIUM BICARBONATE 8.4% VIAL 150 MEQ in WATER FOR INJECTION, STERILE 1,000 ML IV SCH ×2 (10:30→15:12)
--- NOTE | 2020-04-17 12:30 | NUR ---
Heparin drip dosage verified with SOREN Green at this time.
[2020-04-17] MEDS ORDERED: VANCOMYCIN 1 GM/NS 250 ML IVPB IV SCH ×2 (13:30)
[2020-04-17 13:42] LABS: ALBUMIN 2.9 GM/DL (3.2-4.5)
[2020-04-17 13:43] LABS: POTASSIUM 5.3 MMOL/L (3.6-5.0)
[2020-04-17 13:44] LABS: CALCIUM 8.7 MG/DL (8.5-10.1)
[2020-04-17 13:45] LABS: TOTAL PROTEIN 6.2 GM/DL (6.4-8.2)
[2020-04-17 13:47] LABS: BILIRUBIN,TOTAL 0.3 MG/DL (0.1-1.0)
[2020-04-17 13:49] LABS: CREATININE SERUM 2.29 MG/DL (0.60-1.30)
[2020-04-17] MEDS ORDERED: amLODIPine 10 MG (NORVASC) TAB PO NR (14:30)
[2020-04-17] MEDS ORDERED: cloNIDine 0.2 MG (CATAPRES) TAB PO NR (14:30)
--- NOTE | 2020-04-17 16:31 | Diagnostic Imaging Report ---
PROCEDURE: CT chest without contrast. TECHNIQUE: Multiple contiguous axial images were obtained through the chest without the use of intravenous contrast. Auto Exposure Controls were utilized during the CT exam to meet ALARA standards for radiation dose reduction. INDICATION: Hypoxia There are no prior CT chest examinations available for comparison. The plain film examination of the chest performed prior to this study at 2:23 AM noted atelectasis/infiltrate and fluid involving the right lung base. On this exam there is again evidence of a sizable right pleural effusion. The effusion measures approximately 7.4 cm in maximum depth in the right upper lobe and 11.8 cm in the right lung base. There is no abnormal rind of soft tissue about this effusion to suggest it is related to an empyema and I suspect that this is a pleural effusion. However in the right apex, there is a 2.2 x 4.5 cm collection of gas adjacent to the effusion. This does suggest a small loculated pneumothorax. There is also considerable atelectasis of the right lung base and much of the right lower lobe is collapsed about the inferior aspect of the right hilum. The possibility of a right hilar neoplastic mass should certainly be considered. If further evaluation is desired, then endoscopy would be recommended. There is a very small amount of fluid in the left lung base. The left lung itself is generally clear. The heart is enlarged and there are coronary calcifications evident. The aorta is not abnormally dilated. There are a few borderline-enlarged mediastinal nodes. These are nonspecific. The thyroid gland, where visualized, is unremarkable. The images through the upper abdomen failed to show any sign of an acute abnormality. 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 The bone windows show no sign of a displace rib fracture or of a destructive lesion. IMPRESSION: 1. There is a large right pleural effusion with a small pneumothorax component. There is no sign of an empyema. 2. Much of the right lower lobe is collapsed about the inferior aspect of the right hilum. The possibility that there is a neoplastic mass involving the right hilum should certainly be considered. Recommendations as above. 3. There is cardiomegaly and coronary disease. 4. The abdominal aortic aneurysm and the renal atrophy seen previously are again evident and no different. These results were called to Dr. Noe Wesley. Dictated by: Dictated on workstation # [id number]
[2020-04-17] MEDS ORDERED: AMLO-251 PO (16:56)
[2020-04-17] MEDS ORDERED: OMEP40CA27 PO (16:56)
--- NOTE | 2020-04-17 16:57 | NUR ---
SPOKE WITH THE PT (HE HAD A LARGE CARDBOARD BOX IN HIS ROOM WITH HOME MEDS) AND WENT THRU THE EXT MEDS HISTORY TO COMPLETE THE MED REC THE WERE MULTIPLE BOTTLES OF THE SAME MED IN THE BOX, WELL EMPTY BOTTLES AND MEDS THE PT NO LONGER TAKES. THE EXT MED HISTORY SHOWS CURRENT DATES FOR HIS MEDICATIONS HOWEVER WHAT IS IN THE BOX ARE BOTTLES WITH OLDER FILL DATES. THE FOLLOWING MEDS WERE IN THE PT ROOM BUT PT SAYS HE IS NO LONGER TAKING: ATENOLOL 100MG FILL DATE 08-23-1009 #90 LISINOPRIL 20MG FILL DATE 03-22-2017 #90 DIOVAN FILL DATE 2010 IRON OTC CRANBERRY OTC THERE WERE 4 ALMOST FULL BOTTLES OF OMEPRAZOLE 40MG DATED BETWEEN 07-15-16 AND 03-04-2020. PT INSISTS HE TAKES 1 TAB DAILY. THERE WAS A BOTTLE OF TACROLIMUS FILLED 11-06-2015 #60/30DS THAT WAS COMPLETELY FULL, THE BOTTLE WAS LARGER AND WOULD HOLD MORE THEN A 1 MONTH SUPPLY & THERE WAS PROBABLY SEVERAL MONTHS WORTH IN THAT BOTTLE. THERE WAS ALSO ANOTHER BOTTLE THAT HAD NO LABEL BUT LOOKED TO BE TACROLIMUS AND IT WAS COMPLETELY FULL ALSO. OTC MEDS: ASPIRIN 81MG MTV (THERE WERE 3 BOTTLES AND 1 WAS )
[2020-04-17] MEDS: OSELTAMIVIR 30 MG (TAMIFLU) CAPSULE PO SCH (18:11)
--- NOTE | 2020-04-17 18:23 | NUR ---
Attempted to call pt's SO, Voicemail left to return call to this RN.
[2020-04-17] MEDS ORDERED: azaTHIOprine (IMURAN) 50 MG TAB PO SCH ×2 (21:00)
--- NOTE | 2020-04-21 10:49 | Physician Query Clarification ---
PQ-Intro New Diagnosis Admission/Discharge Admission Date: Apr 16, 2020 at 14:30 Discharge Date: Apr 17, 2020 at 18:35 Dr. Haro, The medical record reflects the following clinical scenario: History/Risk Factors: acute respiratory failure w/hypoxia, influenza B, acute renal failure, hx Kidney transplant, metabolic acidosis Clinical Findings: elevated troponin 0.049 Treatment: IV fluids, IV Cefepime, IV Vancomycin, Lovenox, Heparin, Norvasc, catapres, Tamflu Question: What condition best reflects the above clinical scenario? Please document a response in the Progress Noter or Discharge Summary. 1. Type 2 NH 2. Elevated troponin only. No NH 3. Other, with explanation of the clinical findings. 4. Clinically undetermined, no explanation for the clinical findings. PHYSICIAN RESPONSE What condition reflects above: 2 Please remember a lack of response to the above will prompt a phone page by CDI/Coding staff. In responding to this query, please exercise your independent professional judgment. The purpose of this communication is to more accurately reflect the complexity of your patients condition. The fact that a question is asked does not imply that any particular answer is desired or expected. Thank you for your timely response to this clarification. Requestors name: Trevor THIS PHYSICIAN QUERY FORM IS A PERMANENT PART OF THE MEDICAL RECORD TREVOR ESPINOSA Apr 21, 2020 10:49 DIOMEDES HARO MD Apr 28, 2020 19:01
== END 2020-04-17 18:35 | disposition short-term general hospital (02) | DRG 189 ==
LOC: EDUNIT# 12:56 → ER 12:57 → ICU 14:30
PROVIDERS: ADMIT Family Medicine; ATTEND Family Medicine
DX: J96.01 Acute respiratory failure with hypoxia (principal); J91.8 Pleural effusion in other conditions classified elsewhere; E87.2 Acidosis; D84.821 Immunodeficiency due to drugs; N17.9 Acute kidney failure, unspecified; Z94.0 Kidney transplant status; J10.1 Influenza due to other identified influenza virus with other respiratory manifestations; I12.9 Hypertensive chronic kidney disease with stage 1 through stage 4 chronic kidney disease, or unspecified chronic kidney disease; Z20.828 Contact with and (suspected) exposure to other viral communicable diseases; E11.22 Type 2 diabetes mellitus with diabetic chronic kidney disease; E87.6 Hypokalemia; N18.9 Chronic kidney disease, unspecified; J44.9 Chronic obstructive pulmonary disease, unspecified; S01.81XA Laceration without foreign body of other part of head, initial encounter; I48.91 Unspecified atrial fibrillation; R77.8 Other specified abnormalities of plasma proteins; Z79.84 Long term (current) use of oral hypoglycemic drugs; Z87.891 Personal history of nicotine dependence; Z79.82 Long term (current) use of aspirin; Z79.899 Other long term (current) drug therapy; Z88.0 Allergy status to penicillin; Z88.8 Allergy status to other drugs, medicaments and biological substances; Z91.048 Other nonmedicinal substance allergy status; W18.30XA Fall on same level, unspecified, initial encounter; Y92.008 Other place in unspecified non-institutional (private) residence as the place of occurrence of the external cause; Z23 Encounter for immunization
CPT/HCPCS: 36415; 70450; 71045; 71250; 72125; 80048; 80053; 81000; 82010; 82550; 82805; 82962; 83605; 83735; 83880; 84100; 84145; 84484; 85007; 85025; 85027; 85379; 85610; 85730; 86141; 87040; 87077; 87088; 87186; 87635; 87804; 90471; 90715; 93005; 93306; 93970; 96361; 96365; 96366; 96368; 96375; 99291